=== PATIENT | female | born 1970 | race African-American/Black ===

== ENCOUNTER 2017-09-22 15:38 | Inpatient (IN) | payer OTHER ==
[2017-09-22 16:47] VITALS: BMI 32.5
--- NOTE | 2017-09-22 19:31 | HP ---
CIWA Score - CIWA Score Nausea/Vomitin-Mild Nausea/No Vomiting Muscle Tremors: 3 Anxiety: 3 Agitation: 3 Paroxysmal Sweats: 3 Orientation: 0-Oriented Tacttile Disturbances: 0-None Auditory Disturbances: 0-None Visual Disturbances: 2-Mild Sensitivity Headache: 0-None Present CIWA-Ar Total Score: 15 Admission ROS S - HPI Chief Complaint: alcohol withdrawal sx Allergies/Adverse Reactions: Allergies Allergy/AdvReac Type Severity Reaction Status Date / Time Penicillins Allergy Mild Itching Verified 01/20/12 16:54 tomato [Tomato] Allergy Mild Vomiting Verified 01/20/12 16:54 Unclassified Drug Allergy Verified 05/16/11 11:38 History of Present Illness: 46 yo female with hx of crack / cocaine, xanax , heroin ( paranasal), klonopin and alcohol dependence is here seeking detox. MMTP at [facility] on methadone 130 mg, last medicated today, dose pending verification. PMHX: Asthma , OA (b/l knees), schizophrenia. Denies suicidal / homicidal ideation or hx suicide attempts. Denies auditory or visual hallucination. Longest period of sobriety six years. Last detox three months ago at [facility]. Exam Limitations: No Limitations - Ebola screening Have you traveled outside of the country in the last 21 days: No (N) Have you had contact with anyone from an Ebola affected area: No Have you been sick,other than usual withdrawal symptoms: No Do you have a fever: No - Review of Systems Constitutional: Chills, Diaphoresis, Changes in sleep EENT: reports: No Symptoms Reported Respiratory: reports: No Symptoms reported Cardiac: reports: No Symptoms Reported GI: reports: Diarrhea (BM x4 today), Nausea, Poor Appetite, Poor Fluid Intake, Indigestion, Abdominal cramping : reports: No Symptoms Reported Musculoskeletal: reports: Back Pain (low back pain) Integumentary: reports: No Symptoms Reported Neuro: reports: No Symptoms reported Endocrine: reports: Increased Thirst Hematology: reports: Anemia (no meds) Psychiatric: reports: Mood/Affect Appropiate, Orientated x3, Anxious Other Systems: Reviewed and Negative Patient History - Patient Medical History Hx Anemia: Yes Hx Asthma: Yes (ON ALBUTEROL AND ADVAIR INHALERS) Hx Chronic Obstructive Pulmonary Disease (COPD): No Hx Cancer: No Hx Cardiac Disorders: No Hx Congestive Heart Failure: No Hx Hypertension: No Hx Hypercholesterolemia: No Hx Pacemaker: No HX Cerebrovascular Accident: No Hx Seizures: No Hx Dementia: No Hx Diabetes: No Hx Gastrointestinal Disorders: No Hx Liver Disease: No Hx Genitourinary Disorders: No Hx Sexually Transmitted Disorders: No Hx Renal Disease (ESRD): No Hx Thyroid Disease: No Hx Human Immunodeficiency Virus (HIV): No (NEGATIVE 2 MONTHS AGO) Hx Hepatitis C: No Hx Depression: Yes Hx Suicide Attempt: No Hx Bipolar Disorder: No Hx Schizophrenia: Yes - Patient Surgical History Past Surgical History: Yes Hx Neurologic Surgery: No Hx Cataract Extraction: No Hx Cardiac Surgery: No Hx Lung Surgery: No Hx Breast Surgery: No Hx Breast Biopsy: No Hx Abdominal Surgery: Yes (umbillical hernia repair in 1995) Hx Appendectomy: No Hx Cholecystectomy: Yes (1995) Hx Genitourinary Surgery: No Hx Section: Yes (5 c-sections) Hx Orthopedic Surgery: No Other Surgical History: UMBILLICAL HERNIA SX Anesthesia Reaction: No - PPD History Previous Implant?: No Documented Results: Negative w/proof Implanted On Prior [facility] Admission?: No Date: 05/16/11 Results: 0 MM PPD to be Administered?: Yes - Reproductive History Patient is a Female of Child Bearing Age (11 -55 yrs old): Yes Last Menstrual Period: 09/10/17 Patient : No - Smoking Cessation Smoking history: Current every day smoker Have you smoked in the past 12 months: Yes Aproximately how many cigarettes per day: 20 Hx Chewing Tobacco Use: No Initiated information on smoking cessation: Yes 'Breaking Loose' booklet given: 09/22/17 - Substance & Tx. History Hx Alcohol Use: Yes Hx Substance Use: Yes Substance Use Type: Alcohol, Cocaine, Heroin, Marijuana, Tranquilizers Hx Substance Use Treatment: Yes (ast detox three months ago at [facility]. ) - Substances Abused Alcohol Route: Oral Frequency: Daily Amount used: Liquor 3 pints Age of first use: 13 Date of Last Use: 09/22/17 Crack Route: Smoking Frequency: Daily Heroin Route: Inhalation Xanax Route: Inhalation Klonopin Route: Inhalation Family Disease History - Family Disease History Family History: Unable to Obtain Admission Physical Exam BHS - Vital Signs Vital Signs: Vital Signs - 24 hr 09/22/17 16:45 Temperature 97.0 F L Pulse Rate 56 L Respiratory 18 Rate Blood Pressure 122/63 - Physical General Appearance: Yes: Disheveled, Mild Distress, Obese, Sweating, Anxious HEENTM: Yes: EOMI, Hearing grossly Normal, Normal ENT Inspection, Normocephalic , Normal Voice, REGINA, Pharynx Normal, Tm's normal Respiratory: Yes: Chest Non-Tender, Lungs Clear, Normal Breath Sounds, No Respiratory Distress, No Accessory Muscle Use Neck: Yes: Within Normal Limits Breast: Yes: Breast Exam Deferred Cardiology: Yes: Regular Rhythm, Regular Rate, Murmur Genitourinary: Yes: Within Normal Limits Back: Yes: Normal Inspection Musculoskeletal: Yes: full range of Motion, Gait Steady, Pelvis Stable Extremities: Yes: Normal Capillary Refill, Normal Inspection, Normal Range of Motion, Non-Tender Neurological: Yes: tongue lining stitcher II-XII NML intact, Fully Oriented, Alert, Motor Strength 5/5, Depressed Affect Integumentary: Yes: Normal Color, Warm, Diaphoresis Lymphatic: Yes: Within Normal Limits - Diagnostic (1) Alcohol dependence with withdrawal Current Visit: Yes Status: Acute Qualifiers: Complication of substance-induced condition: uncomplicated Qualified Code(s ): F10.230 - Alcohol dependence with withdrawal, uncomplicated (2) Opioid dependence on agonist therapy Current Visit: Yes Status: Acute Comment: On methone 130 mg qd , dose pending verification (3) Asthma Current Visit: Yes Status: Chronic Qualifiers: Asthma severity: moderate Asthma persistence: unspecified Asthma complication type: unspecified Qualified Code(s): J45.909 - Unspecified asthma , uncomplicated (4) Sedative hypnotic or anxiolytic dependence Current Visit: Yes Status: Acute (5) Cocaine dependence Current Visit: Yes Status: Active Cleared for Admission [facility] - Detox or Rehab [facility] Level of Care: Medically Managed Detox Regimen/Protocol: Librium [facility] Breath Alcohol Content Breath Alcohol Content: 0 Urine Pregancy Test - Result Urine Test Results: Negative- NO Line Present Urine Drug Screen - Results Drug Screen Negative: No Urine Drug Screen Results: MADDI-Cocaine, OPI-Opiates, MTD-Methadone, OXY- Oxycodone
[2017-09-22] MEDS ORDERED: ALBUTEROL SO4 2.5/IPRATROPIUM 0.5 INH SOL 3 ML VIAL.NEB. NEB PRN (19:37)
[2017-09-22] MEDS ORDERED: ALBUTEROL SO4 8 GM HFA INHALER IH PRN (19:37)
[2017-09-22] MEDS ORDERED: P-EPHED 60MG/TRIPROLIDI 2.5MG TABLET PO PRN (20:19)
[2017-09-22] MEDS ORDERED: MAG HYDROX/AL HYDROX/SIMETH 30 ML UNIT-DOSE CUP PO PRN (20:19)
[2017-09-22] MEDS ORDERED: MAGNESIUM HYDROX 2400MG/30ML ORAL SUSPENSION 30 ML CUP PO PRN (20:19)
[2017-09-22] MEDS ORDERED: MAGNESIUM CITRATE 300 ML BOTTLE PO PRN (20:19)
[2017-09-22] MEDS ORDERED: hydrOXYzine PAMOATE 50 MG CAPSULE (FP) PO PRN (20:19)
[2017-09-22] MEDS ORDERED: ACETAMINOPHEN 325 MG TABLET (FP) PO PRN (20:19)
[2017-09-22] MEDS ORDERED: LOPERAMIDE HCL 2 MG CAPSULE PO PRN (20:19)
[2017-09-22] MEDS ORDERED: IBUPROFEN 400 MG TABLET (FP) PO PRN (20:19)
[2017-09-22] MEDS ORDERED: chlordiazePOXIDE HCL 25 MG CAPSULE PO PRN (20:19)
[2017-09-22] MEDS ORDERED: MENTHOL/PHENOL 1 EACH UD MM PRN (20:19)
[2017-09-22] MEDS ORDERED: NICOTINE POLACRILEX 2 MG GUM BUC PRN (20:19)
[2017-09-22] MEDS ORDERED: guaiFENesin/D-METHORPHAN HB 10 ML UNIT-DOSE CUPS PO PRN (20:19)
[2017-09-22] MEDS ORDERED: chlordiazePOXIDE HCL 25 MG CAPSULE PO ONE (20:30)
[2017-09-22] MEDS ORDERED: MELATONIN 5 MG TABLETS PO PRN (22:00)
[2017-09-22] MEDS: THIAMINE HCL 100 MG TABLET (FP) PO SCH (22:35)
[2017-09-22] MEDS: chlordiazePOXIDE HCL 25 MG CAPSULE PO SCH (22:35)
[2017-09-22] MEDS: BUDESONIDE/FORMETEROL FUMARATE 160/4.5 mcg INHALER IH SCH (22:35)
[2017-09-23 01:38] LABS: URINE APPEARANCE CLEAR; URINE BILIRUBIN NEGATIVE (<2.0 mg/dL); URINE COLOR YELLOW; URINE GLUCOSE (UA) NEGATIVE (NEGATIVE); URINE KETONE NEGATIVE (NEGATIVE); URINE LEUK ESTERASE NEGATIVE (NEGATIVE); URINE NITRITE NEGATIVE (NEGATIVE); URINE PROTEIN NEGATIVE (NEGATIVE); URINE UROBILINOGEN NEGATIVE mg/dL (0.2-1.0)
[2017-09-23] MEDS: chlordiazePOXIDE HCL 25 MG CAPSULE PO SCH ×4 (06:43→22:06)
[2017-09-23] MEDS: BUDESONIDE/FORMETEROL FUMARATE 160/4.5 mcg INHALER IH SCH ×2 (10:27→22:06)
[2017-09-23] MEDS: NICOTINE 14 MG/24 HOURS TOPICAL PATCH TD SCH (10:28)
[2017-09-23] MEDS: PRENATAL VITAMINS W/ FOLIC ACID TABLET (FP) PO SCH (10:28)
[2017-09-23] MEDS ORDERED: METHADONE HCL 10 MG TABLET PO ONE (10:43)
[2017-09-23] MEDS ORDERED: METHADONE HCL 10 MG TABLET PO SCH (10:45)
[2017-09-23] MEDS ORDERED: METHADONE 120 MG, METHADONE 20 MG PO ONE (11:00)
[2017-09-23 11:01] LABS: HEMATOCRIT 38.6 % (32.4-45.2); HEMOGLOBIN 12.4 GM/dL (10.7-15.3); MCH 28.6 pg (25.7-33.7); MCHC 32.1 g/dl (32.0-36.0); MEAN CELL VOLUME 88.9 fl (80-96); MEAN PLT VOLUME 9.8 fl (7.5-11.1); PLATELET COUNT 168 K/MM3 (134-434); RBC 4.34 M/mm3 (3.60-5.2); RDW 14.9 % (11.6-15.6); WHITE BLOOD COUNT 4.3 K/mm3 (4.0-10.0)
[2017-09-23] MEDS ORDERED: METHADONE HCL 10 MG TABLET ONE (11:07)
[2017-09-23] MEDS ORDERED: METHADONE HCL 40 MG DISPERSABLE TABLET ONE (11:07)
[2017-09-23 11:16] LABS: ALBUMIN 3.1 g/dl (3.4-5.0); ANION GAP 5 (8-16); BLOOD UREA NITROGEN 16 mg/dL (7-18); CHLORIDE 106 mmol/L (98-107); CO2 31 mmol/L (21-32); GLUCOSE,RANDOM 74 mg/dL (74-106); POTASSIUM 3.7 mmol/L (3.5-5.1); SODIUM 142 mmol/L (136-145)
[2017-09-23 11:20] LABS: ALK PHOS 77 U/L (45-117); BILIRUBIN,TOTAL 0.2 mg/dL (0.2-1.0); CREATININE 1.2 mg/dL (0.55-1.02); SGOT/AST 8 U/L (15-37); SGPT/ALT 17 U/L (12-78); TOT PROT 6.6 g/dl (6.4-8.2)
--- NOTE | 2017-09-23 16:29 | EKG ---
Test Reason : Blood Pressure : / mmHG Vent. Rate : 049 BPM Atrial Rate : 049 BPM P-R Int : 136 ms QRS Dur : 088 ms QT Int : 504 ms P-R-T Axes : 074 078 081 degrees QTc Int : 455 ms SINUS BRADYCARDIA OTHERWISE NORMAL ECG NO PREVIOUS ECGS AVAILABLE Confirmed by Gunnar Gonzalez MD ([id number]) on 09/23/2017 4:29:06 PM Referred By: Confirmed By:Gunnar Gonzalez MD
--- NOTE | 2017-09-23 16:32 | PN ---
[facility] CIWA - CIWA Score Nausea/Vomitin Muscle Tremors: 3 Anxiety: 3 Agitation: 3 Paroxysmal Sweats: 1-Minimal Palms Moist Orientation: 0-Oriented Tacttile Disturbances: 1-Very Mild Itch/Numbness Auditory Disturbances: 1-Very Mild Visual Disturbances: 0-None Headache: 2-Mild CIWA-Ar Total Score: 17 S Progress Note (SOAP) Subjective: alert,irritable,anxious,interrupted sleep,tremor,pain in the body and back Objective: 09/23/17 16:29 Vital Signs Temperature 97.5 F L 09/23/17 13:31 Pulse Rate 64 09/23/17 13:31 Respiratory Rate 18 09/23/17 13:31 Blood Pressure 132/73 09/23/17 13:31 O2 Sat by Pulse Oximetry (%) ekg sinus bradycardia 49/min qt/qtc 504/455 no chest pain,no sob,no dizziness Laboratory Last Values WBC 4.3 K/mm3 (4.0-10.0) 09/23/17 07:00 RBC 4.34 M/mm3 (3.60-5.2) 09/23/17 07:00 Hgb 12.4 GM/dL (10.7-15.3) 09/23/17 07:00 Hct 38.6 % (32.4-45.2) 09/23/17 07:00 MCV 88.9 fl (80-96) 09/23/17 07:00 MCH 28.6 pg (25.7-33.7) 09/23/17 07:00 MCHC 32.1 g/dl (32.0-36.0) 09/23/17 07:00 RDW 14.9 % (11.6-15.6) 09/23/17 07:00 Plt Count 168 K/MM3 (134-434) 09/23/17 07:00 MPV 9.8 fl (7.5-11.1) 09/23/17 07:00 Sodium 142 mmol/L (136-145) 09/23/17 07:00 Potassium 3.7 mmol/L (3.5-5.1) 09/23/17 07:00 Chloride 106 mmol/L (98-107) 09/23/17 07:00 Carbon Dioxide 31 mmol/L (21-32) 09/23/17 07:00 Anion Gap 5 (8-16) L 09/23/17 07:00 BUN 16 mg/dL (7-18) 09/23/17 07:00 Creatinine 1.2 mg/dL (0.55-1.02) H 09/23/17 07:00 Creat Clearance w eGFR 47.95 (>60) 09/23/17 07:00 Random Glucose 74 mg/dL (74-106) 09/23/17 07:00 Calcium 9.0 mg/dL (8.5-10.1) 09/23/17 07:00 Total Bilirubin 0.2 mg/dL (0.2-1.0) 09/23/17 07:00 AST 8 U/L (15-37) L 09/23/17 07:00 ALT 17 U/L (12-78) 09/23/17 07:00 Alkaline Phosphatase 77 U/L (45-117) 09/23/17 07:00 Total Protein 6.6 g/dl (6.4-8.2) 09/23/17 07:00 Albumin 3.1 g/dl (3.4-5.0) L 09/23/17 07:00 Urine Color Yellow 09/22/17 23:22 Urine Appearance Clear 09/22/17 23:22 Urine pH 5.0 (5.0-8.0) 09/22/17 23:22 Ur Specific [place] 1.023 (1.001-1.035) 09/22/17 23:22 Urine Protein Negative (NEGATIVE) 09/22/17 23:22 Urine Glucose (UA) Negative (NEGATIVE) 09/22/17 23:22 Urine Ketones Negative (NEGATIVE) 09/22/17 23:22 Urine Blood Negative (NEGATIVE) 09/22/17 23:22 Urine Nitrite Negative (NEGATIVE) 09/22/17 23:22 Urine Bilirubin Negative (<2.0 mg/dL) 09/22/17 23:22 Urine Urobilinogen Negative mg/dL (0.2-1.0) 09/22/17 23:22 Ur Leukocyte Esterase Negative (NEGATIVE) 09/22/17 23:22 RPR Titer Nonreactive (NONREACTIVE) 09/23/17 07:00 Assessment: 09/23/17 16:31 withdrawal symptom Plan: continue detox
--- NOTE | 2017-09-23 16:46 | PN ---
BHS Progress Note Note: rash both legs itching,contact dermatitis, 0.5% hydrocortisone cream bid
[2017-09-23] MEDS: THIAMINE HCL 100 MG TABLET (FP) PO SCH (22:06)
[2017-09-23] MEDS: HYDROCORTISONE 0.5% TOPICAL CREAM 30 GM TUBE TP SCH (22:07)
[2017-09-24] MEDS ORDERED: METHADONE HCL 10 MG TABLET PO SCH (06:00)
[2017-09-24] MEDS ORDERED: METHADONE HCL 10 MG TABLET ONE (06:25)
[2017-09-24] MEDS ORDERED: METHADONE HCL 40 MG DISPERSABLE TABLET ONE (06:25)
[2017-09-24] MEDS: chlordiazePOXIDE HCL 25 MG CAPSULE PO SCH ×3 (06:26→18:12)
[2017-09-24] MEDS: METHADONE 120 MG, METHADONE 30 MG PO SCH (06:27)
[2017-09-24] MEDS: HYDROCORTISONE 0.5% TOPICAL CREAM 30 GM TUBE TP SCH ×2 (11:02→22:41)
[2017-09-24] MEDS: BUDESONIDE/FORMETEROL FUMARATE 160/4.5 mcg INHALER IH SCH ×2 (11:02→22:41)
[2017-09-24] MEDS: NICOTINE 14 MG/24 HOURS TOPICAL PATCH TD SCH (11:03)
[2017-09-24] MEDS: PRENATAL VITAMINS W/ FOLIC ACID TABLET (FP) PO SCH (11:04)
--- NOTE | 2017-09-24 14:55 | PN ---
S CIWA - CIWA Score Nausea/Vomitin Muscle Tremors: 3 Anxiety: 2 Agitation: 2 Paroxysmal Sweats: 1-Minimal Palms Moist Orientation: 0-Oriented Tacttile Disturbances: 1-Very Mild Itch/Numbness Auditory Disturbances: 1-Very Mild Visual Disturbances: 0-None Headache: 2-Mild CIWA-Ar Total Score: 15 BHS Progress Note (SOAP) Subjective: alert,irritable,anxious,interrupted sleep,tremor Objective: 09/24/17 14:53 Vital Signs Temperature 97.5 F L 09/24/17 09:40 Pulse Rate 61 09/24/17 09:40 Respiratory Rate 18 09/24/17 09:40 Blood Pressure 119/71 09/24/17 09:40 O2 Sat by Pulse Oximetry (%) Assessment: 09/24/17 14:54 withdrawal symptom Plan: continue detox
--- NOTE | 2017-09-24 15:52 | CONSULT ---
[facility] Psychiatric Consult - Data Date of interview: 09/24/17 Admission source: [facility] Identifying data: Patient is a 46 year old single woman, mother of five, unemployed, domiciled, and supported by [facility]. This is patient's first admission to detox at [facility]. Pt. admitted to for alcohol, cocaine, and opiate dependence. Substance Abuse History: Smoking Cessation. Smoking history: Current every day smoker. Have you smoked in the past 12 months: Yes. Aproximately how many cigarettes per day: 20. Hx Chewing Tobacco Use: No. Initiated information on smoking cessation: Yes. 'Breaking Loose' booklet given: 09/22/17. - Substance & Tx. History. Hx Alcohol Use: Yes. Hx Substance Use: Yes. Substance Use Type : Alcohol, Cocaine, Heroin, Marijuana, Tranquilizers. Hx Substance Use Treatment: Yes (ast detox three months ago at [facility]. ). - Substances Abused. Alcohol. Route: Oral. Frequency: Daily. Amount used: Liquor 3 pints. Age of first use: 13. Date of Last Use: 09/22/17. Crack. Route: Smoking. Frequency: Daily. Heroin. Route: Inhalation. Xanax. Route: Inhalation. Klonopin. Route: Inhalation Medical History: Anemia, asthma, umbillical hernia repair in 1995 Psychiatric History: Patient reports multiple psychiatric hospitalizations ( [place] and [facility]). OPD is provided at the [facility] in [facility]. Patient's current medication regime as per pharmacy claims are : Haldol 10mg + Wellbutrin 100mg ER + Seroquel 25mg. Pt. states she also takes cogentin 1mg. Diagnosis of schizoaffective disorder. Patient is also on methadone maintenance of 150mg daily. Pt. denies h/o suicide attempt. Physical/Sexual Abuse/Trauma History: denies. Mental Status Exam - Mental Status Exam Alert and Oriented to: Time, Place, Person Cognitive Function: Good Patient Appearance: Well Groomed Mood: Euthymic Affect: Mood Congruent Patient Behavior: Sedated, Fatigued Speech Pattern: Slurred Voice Loudness: Moderately Soft/Quiet Thought Process: Goal Oriented Thought Disorder: Not Present Hallucinations: Denies Suicidal Ideation: Denies Homicidal Ideation: Denies Insight/Judgement: Poor Sleep: Fair Appetite: Fair Muscle strength/Tone: Normal Gait/Station: Normal Psychiatric Findings - Problem List ([place] 1, 2,3) (1) Schizoaffective disorder Current Visit: Yes Status: Chronic Comment: Self reports. (2) Cocaine dependence Current Visit: Yes Status: Active (3) Alcohol dependence with withdrawal Current Visit: Yes Status: Acute Qualifiers: Complication of substance-induced condition: uncomplicated Qualified Code(s ): F10.230 - Alcohol dependence with withdrawal, uncomplicated (4) Opioid dependence on agonist therapy Current Visit: Yes Status: Chronic Comment: On methone 130 mg qd , dose pending verification - Initial Treatment Plan Initial Treatment Plan: Psychoeducation provided. Detoxification in progress. Pt. requesting Haldol 5mg + cogentin 1mg. Will hold seroquel dose to risk of oversedation. Benefits and side effects discussed. Verbal consent given.
[2017-09-24] MEDS: BENZTROPINE MESYLATE 1 MG TABLET (FP) PO SCH (22:40)
[2017-09-24] MEDS: HALOPERIDOL 5 MG TABLET (FP) PO SCH (22:41)
[2017-09-24] MEDS: chlordiazePOXIDE 5 MG CAPSULE PO SCH (22:41)
[2017-09-24] MEDS: THIAMINE HCL 100 MG TABLET (FP) PO SCH (22:42)
[2017-09-25] MEDS ORDERED: METHADONE HCL 40 MG DISPERSABLE TABLET ONE (04:57)
[2017-09-25] MEDS ORDERED: METHADONE HCL 10 MG TABLET ONE (04:58)
[2017-09-25] MEDS: METHADONE 120 MG, METHADONE 30 MG PO SCH (06:01)
[2017-09-25] MEDS: chlordiazePOXIDE 5 MG CAPSULE PO SCH ×3 (06:04→17:08)
[2017-09-25] MEDS: PRENATAL VITAMINS W/ FOLIC ACID TABLET (FP) PO SCH (11:05)
[2017-09-25] MEDS: BUDESONIDE/FORMETEROL FUMARATE 160/4.5 mcg INHALER IH SCH ×2 (11:20→22:45)
[2017-09-25] MEDS: HYDROCORTISONE 0.5% TOPICAL CREAM 30 GM TUBE TP SCH ×2 (11:20→22:45)
[2017-09-25] MEDS: NICOTINE 14 MG/24 HOURS TOPICAL PATCH TD SCH (11:25)
--- NOTE | 2017-09-25 15:20 | PN ---
BHS Progress Note (SOAP) Subjective: pt without complaints today- leaving tomorrow- need to d/w counselor d/c plans Objective: 09/25/17 15:19 Vital Signs - 24 hr 09/24/17 09/24/17 09/25/17 19:02 22:39 00:30 Temperature 97.9 F 98.2 F Pulse Rate 67 68 Respiratory 18 16 16 Rate Blood Pressure 125/66 124/68 09/25/17 09/25/17 09/25/17 07:29 10:44 14:03 Temperature 97.3 F L 96.4 F L 96.4 F L Pulse Rate 50 L 64 70 Respiratory 18 16 19 Rate Blood Pressure 118/72 135/64 118/58 Laboratory Tests 09/22/17 09/23/17 09/23/17 23:22 07:00 07:00 WBC 4.3 RBC 4.34 Hgb 12.4 Hct 38.6 MCV 88.9 MCH 28.6 MCHC 32.1 RDW 14.9 Plt Count 168 MPV 9.8 Sodium 142 Potassium 3.7 Chloride 106 Carbon Dioxide 31 Anion Gap 5 L BUN 16 Creatinine 1.2 H Creat Clearance w eGFR 47.95 Random Glucose 74 Calcium 9.0 Total Bilirubin 0.2 AST 8 L ALT 17 Alkaline Phosphatase 77 Total Protein 6.6 Albumin 3.1 L Urine Color Yellow Urine Appearance Clear Urine pH 5.0 Ur Specific [place] 1.023 Urine Protein Negative Urine Glucose (UA) Negative Urine Ketones Negative Urine Blood Negative Urine Nitrite Negative Urine Bilirubin Negative Urine Urobilinogen Negative Ur Leukocyte Esterase Negative RPR Titer 09/23/17 07:00 WBC RBC Hgb Hct MCV MCH MCHC RDW Plt Count MPV Sodium Potassium Chloride Carbon Dioxide Anion Gap BUN Creatinine Creat Clearance w eGFR Random Glucose Calcium Total Bilirubin AST ALT Alkaline Phosphatase Total Protein Albumin Urine Color Urine Appearance Urine pH Ur Specific [place] Urine Protein Urine Glucose (UA) Urine Ketones Urine Blood Urine Nitrite Urine Bilirubin Urine Urobilinogen Ur Leukocyte Esterase RPR Titer Nonreactive nl VS decrased GFR Assessment: 09/25/17 15:19 46 yo female with hx of crack / cocaine, xanax , heroin ( paranasal), klonopin and alcohol dependence for detox Plan: continue detox, d/c tomorrow, to discuss options with counselor
--- NOTE | 2017-09-25 16:49 | EKG ---
Test Reason : Blood Pressure : / mmHG Vent. Rate : 068 BPM Atrial Rate : 068 BPM P-R Int : 136 ms QRS Dur : 092 ms QT Int : 436 ms P-R-T Axes : 060 064 075 degrees QTc Int : 463 ms NORMAL SINUS RHYTHM NORMAL ECG WHEN COMPARED WITH ECG OF 22-SEP-2017 19:53, NO SIGNIFICANT CHANGE WAS FOUND Confirmed by LELE ALFREDO MD ([id number]) on 09/25/2017 3:51:40 PM Referred By: Confirmed By:LELE ALFREDO MD
[2017-09-25] MEDS: HALOPERIDOL 5 MG TABLET (FP) PO SCH (22:44)
[2017-09-25] MEDS: BENZTROPINE MESYLATE 1 MG TABLET (FP) PO SCH (22:44)
[2017-09-25] MEDS: chlordiazePOXIDE HCL 10 MG CAPSULE PO SCH (22:45)
[2017-09-25] MEDS: THIAMINE HCL 100 MG TABLET (FP) PO SCH (22:45)
[2017-09-26] MEDS ORDERED: METHADONE HCL 40 MG DISPERSABLE TABLET ONE (05:24)
[2017-09-26] MEDS ORDERED: METHADONE HCL 10 MG TABLET ONE (05:24)
[2017-09-26] MEDS: METHADONE 120 MG, METHADONE 30 MG PO SCH (05:58)
[2017-09-26] MEDS: chlordiazePOXIDE HCL 10 MG CAPSULE PO SCH (06:30)
--- NOTE | 2017-09-26 10:05 | PN ---
BHS Progress Note (SOAP) Subjective: pt going home today- no complaints Objective: 09/26/17 10:03 Laboratory Tests 09/22/17 09/23/17 09/23/17 23:22 07:00 07:00 WBC 4.3 RBC 4.34 Hgb 12.4 Hct 38.6 MCV 88.9 MCH 28.6 MCHC 32.1 RDW 14.9 Plt Count 168 MPV 9.8 Sodium 142 Potassium 3.7 Chloride 106 Carbon Dioxide 31 Anion Gap 5 L BUN 16 Creatinine 1.2 H Creat Clearance w eGFR 47.95 Random Glucose 74 Calcium 9.0 Total Bilirubin 0.2 AST 8 L ALT 17 Alkaline Phosphatase 77 Total Protein 6.6 Albumin 3.1 L Urine Color Yellow Urine Appearance Clear Urine pH 5.0 Ur Specific [place] 1.023 Urine Protein Negative Urine Glucose (UA) Negative Urine Ketones Negative Urine Blood Negative Urine Nitrite Negative Urine Bilirubin Negative Urine Urobilinogen Negative Ur Leukocyte Esterase Negative RPR Titer 09/23/17 07:00 WBC RBC Hgb Hct MCV MCH MCHC RDW Plt Count MPV Sodium Potassium Chloride Carbon Dioxide Anion Gap BUN Creatinine Creat Clearance w eGFR Random Glucose Calcium Total Bilirubin AST ALT Alkaline Phosphatase Total Protein Albumin Urine Color Urine Appearance Urine pH Ur Specific [place] Urine Protein Urine Glucose (UA) Urine Ketones Urine Blood Urine Nitrite Urine Bilirubin Urine Urobilinogen Ur Leukocyte Esterase RPR Titer Nonreactive Vital Signs - 24 hr 09/25/17 09/25/17 09/25/17 10:44 14:03 17:53 Temperature 96.4 F L 96.4 F L 97.2 F L Pulse Rate 64 70 73 Respiratory 16 19 18 Rate Blood Pressure 135/64 118/58 99/58 09/25/17 09/26/17 09/26/17 22:51 03:30 06:37 Temperature 97.9 F 97.9 F Pulse Rate 63 65 Respiratory 18 16 18 Rate Blood Pressure 132/75 118/66 stable VS mild CRI Assessment: 09/26/17 10:03 46 yo female with hx of crack / cocaine, xanax , heroin ( paranasal), klonopin and alcohol dependence here for alcohol detox. MMTP at [facility] on methadone 130 mg Plan: to rehab on Friday- in 2 days.
--- NOTE | 2017-09-26 10:06 | DS ---
[facility] Detox Discharge Summary Admission Date: 09/22/17 Discharge Date: 09/26/17 - History Present History: Alcohol Dependence, Cocaine Dependence, MMTP - Physical Exam Results Vital Signs: Vital Signs Temperature 97.9 F 09/26/17 06:37 Pulse Rate 65 09/26/17 06:37 Respiratory Rate 18 09/26/17 06:37 Blood Pressure 118/66 09/26/17 06:37 O2 Sat by Pulse Oximetry (%) Pertinent Admission Physical Exam Findings: 46 yo female with hx of crack / cocaine, xanax , heroin ( paranasal), klonopin and alcohol dependence is here for alcohol detox. MMTP at [facility] on methadone 130 mg - Treatment Hospital Course: Detox Protocol Followed, Detoxed Safely, Responded well, Discharged Condition Good, Rehab Referral Accepted - Medication Discharge Medications: Ambulatory Orders Albuterol [Ventolin] 17 gm IH Q4H PRN 05/15/11 Benztropine Mesylate [Cogentin] 1 mg PO DAILY 01/20/12 Fluoxetine HCl [Prozac] 10 mg PO DAILY 01/20/12 Gabapentin [Neurontin] 300 mg PO HS 01/20/12 Haloperidol [Haldol] 10 mg PO DAILY 01/20/12 - Diagnosis (1) Cocaine dependence Current Visit: Yes Status: Active (2) Alcohol dependence with withdrawal Current Visit: Yes Status: Acute Qualifiers: Complication of substance-induced condition: uncomplicated Qualified Code(s ): F10.230 - Alcohol dependence with withdrawal, uncomplicated (3) Sedative hypnotic or anxiolytic dependence Current Visit: Yes Status: Acute
[2017-09-26 10:19] VITALS: BP 130/70; PULSE 66; TEMP 97.2
[2017-09-26] MEDS: PRENATAL VITAMINS W/ FOLIC ACID TABLET (FP) PO SCH (10:56)
[2017-09-26] MEDS: BUDESONIDE/FORMETEROL FUMARATE 160/4.5 mcg INHALER IH SCH (10:56)
[2017-09-26] MEDS: HYDROCORTISONE 0.5% TOPICAL CREAM 30 GM TUBE TP SCH (10:57)
== END 2017-09-26 10:58 | disposition home or self-care (01) | DRG 774 ==
LOC: YASAS 15:38 → Y6N 19:20
PROVIDERS: ADMIT Surgery; ATTEND Surgery
PROC: HZ2ZZZZ Detoxification Services for Substance Abuse Treatment (ICD-10-PCS; principal; 2017-09-22)
DX: F10.230 Alcohol dependence with withdrawal, uncomplicated (principal); F13.230 Sedative, hypnotic or anxiolytic dependence with withdrawal, uncomplicated; F14.20 Cocaine dependence, uncomplicated; F17.210 Nicotine dependence, cigarettes, uncomplicated; F25.9 Schizoaffective disorder, unspecified; J45.998 Other asthma; L25.9 Unspecified contact dermatitis, unspecified cause; R00.1 Bradycardia, unspecified; E66.9 Obesity, unspecified; Z68.32 Body mass index [BMI] 32.0-32.9, adult; Z88.0 Allergy status to penicillin
CPT/HCPCS: 36415; 80053; 81003; 85027; 86593; 93005; 93010

== ENCOUNTER 2021-02-28 14:20 | Inpatient (IN) | payer OTHER ==
[2021-02-28] MEDS ORDERED: MAG HYDROX/AL HYDROX/SIMETH 30 ML UNIT-DOSE CUP PO PRN (15:26)
[2021-02-28] MEDS ORDERED: NICOTINE 10 MG CARTRIDGE (INHALER) IH PRN (15:26)
[2021-02-28] MEDS ORDERED: ACETAMINOPHEN 325 MG TABLET (FP) PO PRN ×2 (15:26)
[2021-02-28] MEDS ORDERED: IBUPROFEN 400 MG TABLET (FP) PO PRN (15:26)
[2021-02-28] MEDS ORDERED: BISMUTH SUBSALICYLATE 524 MG/30 ML PO PRN (15:26)
[2021-02-28] MEDS ORDERED: MENTHOL/PHENOL 1 EACH UD MM PRN (15:26)
[2021-02-28] MEDS ORDERED: MAGNESIUM CITRATE 300 ML BOTTLE PO PRN (15:26)
[2021-02-28] MEDS ORDERED: ONDANSETRON *ODT* 4 MG TABLET SL PRN (15:26)
[2021-02-28] MEDS ORDERED: MAGNESIUM HYDROX 2400MG/30ML ORAL SUSPENSION 30 ML CUP PO PRN (15:26)
[2021-02-28 20:27] VITALS: BMI 38.8
[2021-02-28] MEDS: hydrOXYzine PAMOATE 25 MG CAPSULE (FP) PO SCH ×2 (22:55→23:01)
[2021-02-28] MEDS: THIAMINE HCL 100 MG TABLET (FP) PO SCH (23:01)
[2021-02-28] MEDS: MELATONIN 5 MG TABLETS PO SCH (23:02)
[2021-03-01] MEDS: hydrOXYzine PAMOATE 25 MG CAPSULE (FP) PO SCH ×6 (06:36→23:36)
[2021-03-01] MEDS ORDERED: diazePAM 5 MG TABLET PO PRN (09:47)
[2021-03-01] MEDS ORDERED: methaDONE HCL 10 MG TABLET ONE (09:57)
[2021-03-01] MEDS ORDERED: methaDONE HCL 40 MG DISPERSABLE TABLET ONE (09:57)
[2021-03-01] MEDS ORDERED: methaDONE HCL 10 MG TABLET PO ONE (10:00)
[2021-03-01] MEDS: METHOCARBAMOL 500 MG TABLET PO PRN ×2 (10:24→23:37)
[2021-03-01] MEDS: PRENATAL VITAMINS W/ FOLIC ACID TABLET (FP) PO SCH (10:24)
[2021-03-01] MEDS: diazePAM 5 MG TABLET PO SCH ×3 (11:09→23:38)
[2021-03-01] MEDS ORDERED: ALBUTEROL SO4 HFA INHALER IH PRN (11:23)
[2021-03-01 11:52] LABS: CALCIUM 9.2 mg/dL (8.5-10.1)
[2021-03-01 11:57] LABS: HEMATOCRIT 37.8 % (32.4-45.2); HEMOGLOBIN 12.4 GM/dL (10.7-15.3); MCH 28.6 pg (25.7-33.7); MCHC 32.9 g/dl (32.0-36.0); MEAN PLT VOLUME 9.1 fl (7.5-11.1); PLATELET COUNT 162 10^3/uL (134-434); RBC 4.34 M/mm3 (3.60-5.2); RDW 14.5 % (11.6-15.6)
[2021-03-01 11:58] LABS: BILIRUBIN,TOTAL 0.3 mg/dL (0.2-1); TOT PROT 6.5 g/dl (6.4-8.2)
[2021-03-01] MEDS: amLODIPine BESYLATE 10 MG TABLET (FP) PO SCH (16:36)
[2021-03-01] MEDS: HALOPERIDOL 5 MG TABLET PO SCH (23:36)
[2021-03-01] MEDS: BENZTROPINE MESYLATE 1 MG TABLET PO SCH (23:36)
[2021-03-01] MEDS: MELATONIN 5 MG TABLETS PO SCH (23:36)
[2021-03-01] MEDS: THIAMINE HCL 100 MG TABLET (FP) PO SCH (23:38)
[2021-03-02] MEDS ORDERED: methaDONE HCL 40 MG DISPERSABLE TABLET ONE (04:59)
[2021-03-02] MEDS ORDERED: methaDONE HCL 10 MG TABLET ONE (04:59)
[2021-03-02] MEDS ORDERED: methaDONE HCL 10 MG TABLET PO SCH (06:00)
[2021-03-02] MEDS: hydrOXYzine PAMOATE 25 MG CAPSULE (FP) PO SCH ×5 (06:06→22:31)
[2021-03-02] MEDS: diazePAM 5 MG TABLET PO SCH ×3 (06:06→22:31)
[2021-03-02] MEDS: METHOCARBAMOL 500 MG TABLET PO PRN (10:34)
[2021-03-02] MEDS: amLODIPine BESYLATE 10 MG TABLET (FP) PO SCH (10:34)
[2021-03-02] MEDS: PRENATAL VITAMINS W/ FOLIC ACID TABLET (FP) PO SCH (10:34)
[2021-03-02] MEDS: MELATONIN 5 MG TABLETS PO SCH (22:30)
[2021-03-02] MEDS: HALOPERIDOL 5 MG TABLET PO SCH (22:31)
[2021-03-02] MEDS: BENZTROPINE MESYLATE 1 MG TABLET PO SCH (22:31)
[2021-03-02] MEDS: THIAMINE HCL 100 MG TABLET (FP) PO SCH (22:31)
[2021-03-03] MEDS ORDERED: methaDONE HCL 10 MG TABLET ONE ×2 (05:50→06:50)
[2021-03-03] MEDS ORDERED: methaDONE HCL 40 MG DISPERSABLE TABLET ONE ×2 (05:50→06:51)
[2021-03-03] MEDS: diazePAM 5 MG TABLET PO SCH ×2 (06:56→17:46)
[2021-03-03] MEDS: hydrOXYzine PAMOATE 25 MG CAPSULE (FP) PO SCH ×2 (06:57→10:47)
[2021-03-03] MEDS: amLODIPine BESYLATE 10 MG TABLET (FP) PO SCH (10:45)
[2021-03-03] MEDS: METHOCARBAMOL 500 MG TABLET PO PRN (10:45)
[2021-03-03] MEDS: PRENATAL VITAMINS W/ FOLIC ACID TABLET (FP) PO SCH (10:45)
[2021-03-03] MEDS ORDERED: hydrOXYzine PAMOATE 25 MG CAPSULE (FP) PO PRN (13:51)
[2021-03-03] MEDS: THIAMINE HCL 100 MG TABLET (FP) PO SCH (22:23)
[2021-03-03] MEDS: MELATONIN 5 MG TABLETS PO SCH (22:23)
[2021-03-03] MEDS: HALOPERIDOL 5 MG TABLET PO SCH (22:23)
[2021-03-03] MEDS: BENZTROPINE MESYLATE 1 MG TABLET PO SCH (22:23)
[2021-03-04] MEDS ORDERED: methaDONE HCL 10 MG TABLET ONE (04:31)
[2021-03-04] MEDS ORDERED: methaDONE HCL 40 MG DISPERSABLE TABLET ONE (04:31)
[2021-03-04] MEDS ORDERED: diazePAM 5 MG TABLET PO ONE (05:00)
[2021-03-04] MEDS: PRENATAL VITAMINS W/ FOLIC ACID TABLET (FP) PO SCH (10:29)
[2021-03-04] MEDS: amLODIPine BESYLATE 10 MG TABLET (FP) PO SCH (10:29)
[2021-03-04] MEDS: MELATONIN 5 MG TABLETS PO SCH (22:20)
[2021-03-04] MEDS: HALOPERIDOL 5 MG TABLET PO SCH (22:20)
[2021-03-04] MEDS: THIAMINE HCL 100 MG TABLET (FP) PO SCH (22:20)
[2021-03-04] MEDS: BENZTROPINE MESYLATE 1 MG TABLET PO SCH (22:20)
[2021-03-05] MEDS ORDERED: methaDONE HCL 40 MG DISPERSABLE TABLET ONE (04:04)
[2021-03-05] MEDS ORDERED: methaDONE HCL 10 MG TABLET ONE (04:04)
[2021-03-05 09:48] VITALS: BP 123/63; PULSE 64; TEMP 97.8
[2021-03-05] MEDS: amLODIPine BESYLATE 10 MG TABLET (FP) PO SCH (09:55)
[2021-03-05] MEDS: PRENATAL VITAMINS W/ FOLIC ACID TABLET (FP) PO SCH (09:55)
== END 2021-03-05 11:59 | disposition home or self-care (01) | DRG 773 ==
LOC: YASAS 14:20 → Y6N 22:36
PROVIDERS: ADMIT Allergy & Immunology; ATTEND Allergy & Immunology
PROC: HZ2ZZZZ Detoxification Services for Substance Abuse Treatment (ICD-10-PCS; principal; 2021-02-28)
DX: F10.230 Alcohol dependence with withdrawal, uncomplicated (principal); F13.230 Sedative, hypnotic or anxiolytic dependence with withdrawal, uncomplicated; F14.20 Cocaine dependence, uncomplicated; F11.20 Opioid dependence, uncomplicated; F17.210 Nicotine dependence, cigarettes, uncomplicated; F25.9 Schizoaffective disorder, unspecified; F19.24 Other psychoactive substance dependence with psychoactive substance-induced mood disorder; J45.20 Mild intermittent asthma, uncomplicated; Z88.0 Allergy status to penicillin; Z91.018 Allergy to other foods
CPT/HCPCS: 36415; 80053; 85027; 86780; C9803; U0003; U0005

== ENCOUNTER 2021-03-27 17:31 | Inpatient (IN) | payer OTHER ==
[2021-03-27 19:05] VITALS: BMI 38.4
[2021-03-27] MEDS ORDERED: MAG HYDROX/AL HYDROX/SIMETH 30 ML UNIT-DOSE CUP PO PRN (22:24)
[2021-03-27] MEDS ORDERED: ACETAMINOPHEN 325 MG TABLET (FP) PO PRN ×2 (22:24)
[2021-03-27] MEDS ORDERED: METHOCARBAMOL 500 MG TABLET PO PRN (22:24)
[2021-03-27] MEDS ORDERED: BISMUTH SUBSALICYLATE 524 MG/30 ML PO PRN (22:24)
[2021-03-27] MEDS ORDERED: MENTHOL/PHENOL 1 EACH UD MM PRN (22:24)
[2021-03-27] MEDS ORDERED: IBUPROFEN 400 MG TABLET (FP) PO PRN (22:24)
[2021-03-27] MEDS ORDERED: MAGNESIUM CITRATE 300 ML BOTTLE PO PRN (22:24)
[2021-03-27] MEDS ORDERED: ONDANSETRON *ODT* 4 MG TABLET SL PRN (22:24)
[2021-03-27] MEDS ORDERED: hydrOXYzine PAMOATE 25 MG CAPSULE (FP) PO PRN (22:24)
[2021-03-27] MEDS ORDERED: MAGNESIUM HYDROX 2400MG/30ML ORAL SUSPENSION 30 ML CUP PO PRN (22:24)
[2021-03-28] MEDS ORDERED: diazePAM 5 MG TABLET PO PRN (00:06)
[2021-03-28] MEDS: diazePAM 5 MG TABLET PO SCH ×4 (04:07→22:25)
[2021-03-28] MEDS: NICOTINE 10 MG CARTRIDGE (INHALER) IH PRN ×2 (04:11→23:53)
[2021-03-28] MEDS ORDERED: methaDONE HCL 10 MG TABLET PO SCH (07:45)
[2021-03-28] MEDS ORDERED: methaDONE HCL 40 MG DISPERSABLE TABLET ONE (09:08)
[2021-03-28] MEDS ORDERED: methaDONE HCL 10 MG TABLET ONE (09:08)
[2021-03-28 10:19] LABS: HEMATOCRIT 38.7 % (32.4-45.2); HEMOGLOBIN 12.2 GM/dL (10.7-15.3); MCH 27.7 pg (25.7-33.7); MCHC 31.4 g/dl (32.0-36.0); MEAN PLT VOLUME 9.2 fl (7.5-11.1); PLATELET COUNT 155 10^3/uL (134-434); RDW 14.9 % (11.6-15.6); WHITE BLOOD COUNT 4.4 K/mm3 (4.0-10.0)
[2021-03-28] MEDS: PRENATAL VITAMINS W/ FOLIC ACID TABLET (FP) PO SCH (10:25)
[2021-03-28] MEDS: NICOTINE 21 MG/24 HOURS TOPICAL PATCH TD SCH (10:25)
[2021-03-28 10:35] LABS: BILIRUBIN,TOTAL 0.4 mg/dL (0.2-1); BLOOD UREA NITROGEN 14.7 mg/dL (7-18); CALCIUM 8.8 mg/dL (8.5-10.1); TOT PROT 6.6 g/dl (6.4-8.2)
[2021-03-28 11:14] LABS: HIV INTERPRETATION NEGATIVE (NEGATIVE)
[2021-03-28] MEDS ORDERED: FLU VACC QS2021-22(6MOS UP)/PF 60 MCG/0.5 ML SYRINGE IM ONE (12:00)
[2021-03-28] MEDS: HALOPERIDOL 5 MG TABLET PO SCH (22:24)
[2021-03-28] MEDS: THIAMINE HCL 100 MG TABLET (FP) PO SCH (22:24)
[2021-03-28] MEDS: MELATONIN 5 MG TABLETS PO SCH (22:24)
[2021-03-28] MEDS: BENZTROPINE MESYLATE 1 MG TABLET PO SCH (22:24)
[2021-03-28] MEDS: metroNIDAZOLE 0.75% VAGINAL GEL 70 GM TUBE VG SCH (23:01)
[2021-03-29] MEDS ORDERED: methaDONE HCL 10 MG TABLET ONE (04:34)
[2021-03-29] MEDS ORDERED: methaDONE HCL 40 MG DISPERSABLE TABLET ONE (04:35)
[2021-03-29] MEDS: diazePAM 5 MG TABLET PO SCH ×3 (06:18→22:05)
[2021-03-29] MEDS: PRENATAL VITAMINS W/ FOLIC ACID TABLET (FP) PO SCH (10:09)
[2021-03-29] MEDS: NICOTINE 21 MG/24 HOURS TOPICAL PATCH TD SCH (10:11)
[2021-03-29] MEDS: THIAMINE HCL 100 MG TABLET (FP) PO SCH (22:03)
[2021-03-29] MEDS: HALOPERIDOL 5 MG TABLET PO SCH (22:04)
[2021-03-29] MEDS: MELATONIN 5 MG TABLETS PO SCH (22:04)
[2021-03-29] MEDS: metroNIDAZOLE 0.75% VAGINAL GEL 70 GM TUBE VG SCH (22:04)
[2021-03-29] MEDS: BENZTROPINE MESYLATE 1 MG TABLET PO SCH (22:05)
[2021-03-29] MEDS: NICOTINE 10 MG CARTRIDGE (INHALER) IH PRN (22:06)
[2021-03-30] MEDS ORDERED: methaDONE HCL 10 MG TABLET ONE (04:17)
[2021-03-30] MEDS ORDERED: methaDONE HCL 40 MG DISPERSABLE TABLET ONE (04:18)
[2021-03-30 06:07] LABS: SARS-CoV-2 NAA Not Detected (Not Detected)
[2021-03-30] MEDS: diazePAM 5 MG TABLET PO SCH ×2 (06:09→17:27)
[2021-03-30] MEDS: PRENATAL VITAMINS W/ FOLIC ACID TABLET (FP) PO SCH (10:28)
[2021-03-30] MEDS: NICOTINE 21 MG/24 HOURS TOPICAL PATCH TD SCH (10:28)
[2021-03-30] MEDS: NICOTINE 10 MG CARTRIDGE (INHALER) IH PRN (14:51)
[2021-03-30] MEDS: THIAMINE HCL 100 MG TABLET (FP) PO SCH (22:19)
[2021-03-30] MEDS: HALOPERIDOL 5 MG TABLET PO SCH (22:19)
[2021-03-30] MEDS: BENZTROPINE MESYLATE 1 MG TABLET PO SCH (22:19)
[2021-03-30] MEDS: MELATONIN 5 MG TABLETS PO SCH (22:19)
[2021-03-30] MEDS: metroNIDAZOLE 0.75% VAGINAL GEL 70 GM TUBE VG SCH (22:21)
[2021-03-31] MEDS ORDERED: methaDONE HCL 40 MG DISPERSABLE TABLET ONE (04:49)
[2021-03-31] MEDS ORDERED: methaDONE HCL 10 MG TABLET ONE (04:49)
[2021-03-31] MEDS ORDERED: diazePAM 5 MG TABLET PO ONE (06:00)
[2021-03-31 09:53] VITALS: BP 126/75; PULSE 62; TEMP 97.3
[2021-03-31] MEDS: NICOTINE 21 MG/24 HOURS TOPICAL PATCH TD SCH (10:20)
[2021-03-31] MEDS: PRENATAL VITAMINS W/ FOLIC ACID TABLET (FP) PO SCH (10:20)
[2021-03-31 14:11] LABS: SARS-CoV-2 NAA Not Detected (Not Detected)
== END 2021-03-31 11:23 | disposition other institution (70) | DRG 773 ==
LOC: YASAS 17:31 → Y3N 23:28
PROVIDERS: ADMIT Allergy & Immunology; ATTEND Allergy & Immunology
PROC: HZ2ZZZZ Detoxification Services for Substance Abuse Treatment (ICD-10-PCS; principal; 2021-03-27)
DX: F10.230 Alcohol dependence with withdrawal, uncomplicated (principal); F11.20 Opioid dependence, uncomplicated; F14.20 Cocaine dependence, uncomplicated; F13.20 Sedative, hypnotic or anxiolytic dependence, uncomplicated; F17.210 Nicotine dependence, cigarettes, uncomplicated; F25.9 Schizoaffective disorder, unspecified; F19.24 Other psychoactive substance dependence with psychoactive substance-induced mood disorder; J45.20 Mild intermittent asthma, uncomplicated; N89.8 Other specified noninflammatory disorders of vagina; E66.9 Obesity, unspecified; Z68.38 Body mass index [BMI] 38.0-38.9, adult; Z88.0 Allergy status to penicillin; Z91.013 Allergy to seafood
CPT/HCPCS: 36415; 80053; 85027; 86780; 87389; 87491; 87591; 87661; C9803; U0003; U0005

== ENCOUNTER 2021-12-25 15:05 | Inpatient (IN) | payer OTHER ==
[2021-12-25 15:58] VITALS: BMI 31.8
[2021-12-25] MEDS ORDERED: ALBUTEROL SO4 HFA INHALER IH PRN (16:48)
[2021-12-25] MEDS ORDERED: ACETAMINOPHEN 325 MG TABLET (FP) PO PRN ×2 (17:02)
[2021-12-25] MEDS ORDERED: METHOCARBAMOL 500 MG TABLET PO PRN (17:02)
[2021-12-25] MEDS ORDERED: NALOXONE HCL (KLOXXADO) 8 MG SPRAY NS PRN (17:02)
[2021-12-25] MEDS ORDERED: NICOTINE POLACRILEX 2 MG GUM BUC PRN (17:02)
[2021-12-25] MEDS ORDERED: BISMUTH SUBSALICYLATE 524 MG/30 ML PO PRN (17:02)
[2021-12-25] MEDS ORDERED: P-EPHED 60MG/TRIPROLIDI 2.5MG TABLET PO PRN (17:02)
[2021-12-25] MEDS ORDERED: guaiFENesin 200 MG/10 ML 10 ML UNIT-DOSE CUPS PO PRN (17:02)
[2021-12-25] MEDS ORDERED: NALOXONE HCL 0.4 MG/ML VIAL IM PRN (17:02)
[2021-12-25] MEDS ORDERED: BENZOCAINE/MENTHOL (CHLORASEPTIC ) LOZENGE MM PRN (17:02)
[2021-12-25] MEDS ORDERED: ONDANSETRON *ODT* 4 MG TABLET SL PRN (17:02)
[2021-12-25] MEDS ORDERED: MAG HYDROX/AL HYDROX/SIMETH 30 ML UNIT-DOSE CUP PO PRN (17:02)
[2021-12-25] MEDS ORDERED: LOPERAMIDE HCL 2 MG CAPSULE PO PRN (17:02)
[2021-12-25] MEDS ORDERED: IBUPROFEN 400 MG TABLET (FP) PO PRN (17:02)
[2021-12-25] MEDS ORDERED: MAGNESIUM CITRATE 300 ML BOTTLE PO PRN (17:02)
[2021-12-25] MEDS ORDERED: MAGNESIUM HYDROX 2400MG/30ML ORAL SUSPENSION 30 ML CUP PO PRN (17:02)
[2021-12-25] MEDS ORDERED: IBUPROFEN 600 MG TABLET (FP) PO PRN (17:02)
[2021-12-25] MEDS ORDERED: DICYCLOMINE HCL 10 MG CAPSULE PO PRN (17:02)
[2021-12-25 18:31] VITALS: RESP 18
[2021-12-25] MEDS ORDERED: THIAMINE HCL 100 MG TABLET (FP) PO SCH (22:00)
[2021-12-26 09:05] VITALS: BP 133/66; PULSE 88; TEMP 98.4
[2021-12-26] MEDS ORDERED: methaDONE HCL 40 MG DISPERSABLE TABLET PO SCH (09:15)
[2021-12-26] MEDS ORDERED: PRENATAL VITAMINS W/ FOLIC ACID TABLET (FP) PO SCH (10:00)
[2021-12-26] MEDS ORDERED: NICOTINE 10 MG CARTRIDGE (INHALER) IH PRN (11:05)
[2021-12-26 15:34] LABS: HEMATOCRIT 37.2 % (32.4-45.2); HEMOGLOBIN 11.8 GM/dL (10.7-15.3); MCH 28.1 pg (25.7-33.7); MCHC 31.8 g/dl (32.0-36.0); MEAN CELL VOLUME 88.6 fl (80-96); MEAN PLT VOLUME 10.1 fl (7.5-11.1); PLATELET COUNT 181 10^3/uL (134-434); RDW 14.6 % (11.6-15.6); WHITE BLOOD COUNT 4.7 K/mm3 (4.0-10.0)
[2021-12-26 16:15] LABS: ALBUMIN 3.1 g/dl (3.4-5.0); CALCIUM 8.7 mg/dL (8.5-10.1)
[2021-12-26 16:19] LABS: CREATININE 1.3 mg/dL (0.55-1.3)
[2021-12-26 16:20] LABS: BILIRUBIN,TOTAL 0.2 mg/dL (0.2-1); TOT PROT 6.4 g/dl (6.4-8.2)
== END 2021-12-26 12:30 | disposition other institution (70) | DRG 773 ==
LOC: YASAS 15:05 → UNDOADMIN 17:57 → Y3N 17:57 → UNDODISIN 12-26 12:30
PROVIDERS: ADMIT Allergy & Immunology; ATTEND Surgery
PROC: HZ2ZZZZ Detoxification Services for Substance Abuse Treatment (ICD-10-PCS; principal; 2021-12-25)
DX: F11.23 Opioid dependence with withdrawal (principal); F10.20 Alcohol dependence, uncomplicated; F13.20 Sedative, hypnotic or anxiolytic dependence, uncomplicated; F15.20 Other stimulant dependence, uncomplicated; F17.210 Nicotine dependence, cigarettes, uncomplicated; F20.9 Schizophrenia, unspecified; F19.24 Other psychoactive substance dependence with psychoactive substance-induced mood disorder; J45.20 Mild intermittent asthma, uncomplicated; R94.31 Abnormal electrocardiogram [ECG] [EKG]; Z28.310 Unvaccinated for COVID-19; Z28.9 Immunization not carried out for unspecified reason; Z88.0 Allergy status to penicillin; Z91.013 Allergy to seafood
CPT/HCPCS: 36415; 80053; 81025; 85027; 86780; 87811; 93005; 93010; C9803-CS; Q0162; U0003; U0005

== ENCOUNTER 2022-09-03 11:49 | Inpatient (IN) | payer OTHER ==
[2022-09-03 12:35] VITALS: BMI 28.0
[2022-09-03] MEDS ORDERED: NALOXONE HCL 0.4 MG/ML VIAL IM PRN (13:23)
[2022-09-03] MEDS ORDERED: POLYETHYLENE GLYCOL (HEALTHYLAX) 3350 17 GM PACKET PO PRN (13:23)
[2022-09-03] MEDS ORDERED: BENZONATATE 200 MG CAPSULE PO PRN (13:23)
[2022-09-03] MEDS ORDERED: LOPERAMIDE HCL 2 MG CAPSULE PO PRN (13:23)
[2022-09-03] MEDS ORDERED: TUBERCULIN PPD 5 TU/0.1ML VIAL ID ONE (13:23)
[2022-09-03] MEDS ORDERED: MAGNESIUM HYDROX 2400MG/30ML ORAL SUSPENSION 30 ML CUP PO PRN (13:23)
[2022-09-03] MEDS ORDERED: IBUPROFEN 600 MG TABLET (FP) PO PRN (13:23)
[2022-09-03] MEDS ORDERED: BENZOCAINE/MENTHOL (CHLORASEPTIC ) LOZENGE MM PRN (13:23)
[2022-09-03] MEDS ORDERED: guaiFENesin 600 MG TABLET.ER (FP) PO PRN (13:23)
[2022-09-03] MEDS ORDERED: ACETAMINOPHEN 325 MG TABLET (FP) PO PRN (13:23)
[2022-09-03] MEDS ORDERED: MAG HYDROX/AL HYDROX/SIMETH 30 ML UNIT-DOSE CUP PO PRN (13:23)
[2022-09-03] MEDS ORDERED: AMMONIUM LACTATE 12% LOTION 225 GM BOTTLE TP PRN (13:23)
[2022-09-03] MEDS ORDERED: IBUPROFEN 400 MG TABLET (FP) PO PRN (13:23)
[2022-09-03] MEDS ORDERED: NALOXONE HCL (KLOXXADO) 8 MG SPRAY NS PRN (13:23)
[2022-09-03] MEDS ORDERED: ALBUTEROL SO4 HFA INHALER IH PRN (13:25)
[2022-09-03] MEDS: PRENATAL VITAMINS W/ FOLIC ACID TABLET (FP) PO SCH (14:59)
[2022-09-03 16:32] LABS: HEMATOCRIT 31.7 % (32.4-45.2); HEMOGLOBIN 10.4 GM/dL (10.7-15.3); MCHC 32.7 g/dl (32.0-36.0); MEAN CELL VOLUME 85.4 fl (80-96); PLATELET COUNT 151 10^3/uL (134-434); RBC 3.71 M/mm3 (3.60-5.2); RDW 15.8 % (11.6-15.6); WHITE BLOOD COUNT 4.1 K/mm3 (4.0-10.0)
[2022-09-03 16:34] LABS: POTASSIUM 3.9 mmol/L (3.5-5.1)
[2022-09-03 16:37] LABS: ALBUMIN 3.3 g/dl (3.4-5.0); CALCIUM 9.2 mg/dL (8.5-10.1)
[2022-09-03 16:41] LABS: BILIRUBIN,TOTAL 0.2 mg/dL (0.2-1); CREATININE 1.6 mg/dL (0.55-1.3); TOT PROT 7.1 g/dl (6.4-8.2)
[2022-09-03 17:00] LABS: SYPHILIS W/ RPR CONF NON-REACTIVE (NONREACTIVE)
[2022-09-03] MEDS: hydrOXYzine PAMOATE 25 MG CAPSULE (FP) PO PRN (21:45)
[2022-09-03] MEDS: THIAMINE HCL 100 MG TABLET (FP) PO SCH (21:45)
[2022-09-03] MEDS: MELATONIN 5 MG TABLETS PO SCH (21:46)
[2022-09-04] MEDS: methaDONE HCL 40 MG DISPERSABLE TABLET PO SCH (07:03)
[2022-09-04] MEDS: amLODIPine BESYLATE 10 MG TABLET (FP) PO SCH (10:24)
[2022-09-04] MEDS: PRENATAL VITAMINS W/ FOLIC ACID TABLET (FP) PO SCH (10:24)
[2022-09-04] MEDS: hydrOXYzine PAMOATE 25 MG CAPSULE (FP) PO PRN (10:25)
[2022-09-04] MEDS: MELATONIN 5 MG TABLETS PO SCH (21:15)
[2022-09-04] MEDS: HALOPERIDOL 5 MG TABLET PO SCH (21:15)
[2022-09-04] MEDS: THIAMINE HCL 100 MG TABLET (FP) PO SCH (21:15)
[2022-09-04] MEDS: BENZTROPINE MESYLATE 1 MG TABLET PO SCH (21:15)
[2022-09-05] MEDS: methaDONE HCL 40 MG DISPERSABLE TABLET PO SCH (07:00)
[2022-09-05] MEDS: PRENATAL VITAMINS W/ FOLIC ACID TABLET (FP) PO SCH (10:13)
[2022-09-05] MEDS: hydrOXYzine PAMOATE 25 MG CAPSULE (FP) PO PRN (10:13)
[2022-09-05] MEDS: amLODIPine BESYLATE 10 MG TABLET (FP) PO SCH (10:13)
[2022-09-05 13:39] LABS: PH,URINE 5.5 (5.0-8.0); URINE APPEARANCE CLEAR; URINE BILIRUBIN NEGATIVE (NEGATIVE); URINE COLOR YELLOW; URINE GLUCOSE (UA) NEGATIVE (NEGATIVE); URINE KETONE NEGATIVE (NEGATIVE); URINE LEUK ESTERASE NEGATIVE (NEGATIVE); URINE NITRITE NEGATIVE (NEGATIVE); URINE PROTEIN NEGATIVE (NEGATIVE); URINE UROBILINOGEN 0.2 mg/dL (0.2-1.0)
[2022-09-05] MEDS: THIAMINE HCL 100 MG TABLET (FP) PO SCH (21:32)
[2022-09-05] MEDS: BENZTROPINE MESYLATE 1 MG TABLET PO SCH (21:32)
[2022-09-05] MEDS: HALOPERIDOL 5 MG TABLET PO SCH (21:32)
[2022-09-05] MEDS: MELATONIN 5 MG TABLETS PO SCH (21:32)
[2022-09-06] MEDS: methaDONE HCL 40 MG DISPERSABLE TABLET PO SCH (06:17)
[2022-09-06] MEDS: PRENATAL VITAMINS W/ FOLIC ACID TABLET (FP) PO SCH (09:37)
[2022-09-06] MEDS: amLODIPine BESYLATE 10 MG TABLET (FP) PO SCH (09:37)
[2022-09-06] MEDS: COLLOIDAL OATMEAL 1 BAR EACH TP PRN (11:07)
[2022-09-06] MEDS: BENZTROPINE MESYLATE 1 MG TABLET PO SCH (21:17)
[2022-09-06] MEDS: MELATONIN 5 MG TABLETS PO SCH (21:17)
[2022-09-06] MEDS: HALOPERIDOL 5 MG TABLET PO SCH (21:17)
[2022-09-06] MEDS: THIAMINE HCL 100 MG TABLET (FP) PO SCH (21:17)
[2022-09-07] MEDS: methaDONE HCL 40 MG DISPERSABLE TABLET PO SCH (05:57)
[2022-09-07] MEDS: amLODIPine BESYLATE 10 MG TABLET (FP) PO SCH (10:12)
[2022-09-07] MEDS: PRENATAL VITAMINS W/ FOLIC ACID TABLET (FP) PO SCH (10:12)
[2022-09-07] MEDS: HALOPERIDOL 5 MG TABLET PO SCH (21:49)
[2022-09-07] MEDS: THIAMINE HCL 100 MG TABLET (FP) PO SCH (21:49)
[2022-09-07] MEDS: BENZTROPINE MESYLATE 1 MG TABLET PO SCH (21:49)
[2022-09-07] MEDS: MELATONIN 5 MG TABLETS PO SCH (21:49)
[2022-09-08] MEDS: methaDONE HCL 40 MG DISPERSABLE TABLET PO SCH (06:23)
[2022-09-08] MEDS: PRENATAL VITAMINS W/ FOLIC ACID TABLET (FP) PO SCH (10:05)
[2022-09-08] MEDS: amLODIPine BESYLATE 10 MG TABLET (FP) PO SCH (10:05)
[2022-09-08] MEDS: BENZTROPINE MESYLATE 1 MG TABLET PO SCH (21:23)
[2022-09-08] MEDS: HALOPERIDOL 5 MG TABLET PO SCH (21:23)
[2022-09-08] MEDS: MELATONIN 5 MG TABLETS PO SCH (21:23)
[2022-09-08] MEDS: THIAMINE HCL 100 MG TABLET (FP) PO SCH (21:23)
[2022-09-09] MEDS: hydrOXYzine PAMOATE 25 MG CAPSULE (FP) PO PRN (00:11)
[2022-09-09] MEDS: methaDONE HCL 40 MG DISPERSABLE TABLET PO SCH (06:30)
[2022-09-09] MEDS: PRENATAL VITAMINS W/ FOLIC ACID TABLET (FP) PO SCH (10:32)
[2022-09-09] MEDS: amLODIPine BESYLATE 10 MG TABLET (FP) PO SCH (10:32)
[2022-09-09] MEDS: BENZTROPINE MESYLATE 1 MG TABLET PO SCH (21:14)
[2022-09-09] MEDS: HALOPERIDOL 5 MG TABLET PO SCH (21:14)
[2022-09-09] MEDS: THIAMINE HCL 100 MG TABLET (FP) PO SCH (21:14)
[2022-09-09] MEDS: MELATONIN 5 MG TABLETS PO SCH (21:14)
[2022-09-10] MEDS: methaDONE HCL 40 MG DISPERSABLE TABLET PO SCH (06:15)
[2022-09-10] MEDS: amLODIPine BESYLATE 10 MG TABLET (FP) PO SCH (09:41)
[2022-09-10] MEDS: PRENATAL VITAMINS W/ FOLIC ACID TABLET (FP) PO SCH (09:41)
[2022-09-10] MEDS: COLLOIDAL OATMEAL 1 BAR EACH TP PRN (19:36)
[2022-09-10] MEDS: MELATONIN 5 MG TABLETS PO SCH (21:34)
[2022-09-10] MEDS: BENZTROPINE MESYLATE 1 MG TABLET PO SCH (21:35)
[2022-09-10] MEDS: THIAMINE HCL 100 MG TABLET (FP) PO SCH (21:35)
[2022-09-10] MEDS: HALOPERIDOL 5 MG TABLET PO SCH (21:35)
[2022-09-11] MEDS: methaDONE HCL 40 MG DISPERSABLE TABLET PO SCH (06:13)
[2022-09-11] MEDS: PRENATAL VITAMINS W/ FOLIC ACID TABLET (FP) PO SCH (09:34)
[2022-09-11] MEDS: amLODIPine BESYLATE 10 MG TABLET (FP) PO SCH (09:35)
[2022-09-11] MEDS ORDERED: NICOTINE 14 MG/24 HOURS TOPICAL PATCH TD PRN (12:37)
[2022-09-11] MEDS ORDERED: NICOTINE POLACRILEX 2 MG GUM BUC PRN (12:37)
[2022-09-11] MEDS: NICOTINE 10 MG CARTRIDGE (INHALER) IH SCH (13:50)
[2022-09-11] MEDS: BENZTROPINE MESYLATE 1 MG TABLET PO SCH (21:05)
[2022-09-11] MEDS: MELATONIN 5 MG TABLETS PO SCH (21:05)
[2022-09-11] MEDS: THIAMINE HCL 100 MG TABLET (FP) PO SCH (21:05)
[2022-09-11] MEDS: hydrOXYzine PAMOATE 25 MG CAPSULE (FP) PO PRN (21:05)
[2022-09-11] MEDS: HALOPERIDOL 5 MG TABLET PO SCH (21:05)
[2022-09-12] MEDS: methaDONE HCL 40 MG DISPERSABLE TABLET PO SCH (06:18)
[2022-09-12] MEDS: NICOTINE 10 MG CARTRIDGE (INHALER) IH SCH ×2 (09:45→11:55)
[2022-09-12] MEDS: PRENATAL VITAMINS W/ FOLIC ACID TABLET (FP) PO SCH (09:46)
[2022-09-12] MEDS: amLODIPine BESYLATE 10 MG TABLET (FP) PO SCH (09:46)
[2022-09-12] MEDS ORDERED: NICOTINE 10 MG CARTRIDGE (INHALER) IH PRN (11:50)
[2022-09-12] MEDS: LIDOCAINE 5% TOPICAL PATCH TP SCH ×2 (13:46→13:48)
[2022-09-12] MEDS: METHYL SALICYLATE/MENTHOL OINT 30 GM TUBE TP SCH (13:47)
[2022-09-12] MEDS: MELATONIN 5 MG TABLETS PO SCH (21:51)
[2022-09-12] MEDS: LIDOCAINE PATCH REMOVAL MC SCH (21:51)
[2022-09-12] MEDS: THIAMINE HCL 100 MG TABLET (FP) PO SCH (21:51)
[2022-09-12] MEDS: BENZTROPINE MESYLATE 1 MG TABLET PO SCH (21:52)
[2022-09-12] MEDS: HALOPERIDOL 5 MG TABLET PO SCH (21:52)
[2022-09-13] MEDS ORDERED: methaDONE HCL 40 MG DISPERSABLE TABLET PO SCH (06:00)
[2022-09-13] MEDS: PRENATAL VITAMINS W/ FOLIC ACID TABLET (FP) PO SCH (09:42)
[2022-09-13] MEDS: LIDOCAINE 5% TOPICAL PATCH TP SCH (09:44)
[2022-09-13] MEDS: METHYL SALICYLATE/MENTHOL OINT 30 GM TUBE TP SCH (09:51)
[2022-09-13] MEDS: NICOTINE 10 MG CARTRIDGE (INHALER) IH SCH (09:51)
[2022-09-13 10:44] LABS: BASO % 0.7 % (0-2.0); EOS % 1.7 % (0-4.5); HEMATOCRIT 31.7 % (32.4-45.2); HEMOGLOBIN 10.1 GM/dL (10.7-15.3); LYMPH % 48.8 % (8-40); MCH 28.1 pg (25.7-33.7); MCHC 31.8 g/dl (32.0-36.0); MEAN CELL VOLUME 88.2 fl (80-96); MEAN PLT VOLUME 9.9 fl (7.5-11.1); MONO % 11.5 % (3.8-10.2); NEUT % 37.3 % (42.8-82.8); PLATELET COUNT 167 10^3/uL (134-434); RBC 3.59 M/mm3 (3.60-5.2); WHITE BLOOD COUNT 5.1 K/mm3 (4.0-10.0)
[2022-09-13 11:12] LABS: POTASSIUM 4.5 mmol/L (3.5-5.1)
[2022-09-13 11:16] LABS: CALCIUM 9.1 mg/dL (8.5-10.1)
[2022-09-13 11:17] LABS: ALBUMIN 3.3 g/dl (3.4-5.0); BLOOD UREA NITROGEN 38.2 mg/dL (7-18)
[2022-09-13 11:18] LABS: CREATININE 1.1 mg/dL (0.55-1.3)
[2022-09-13 11:20] LABS: BILIRUBIN,TOTAL 0.2 mg/dL (0.2-1)
[2022-09-13 11:22] LABS: TOT PROT 7.2 g/dl (6.4-8.2)
[2022-09-13] MEDS: amLODIPine BESYLATE 10 MG TABLET (FP) PO SCH (11:49)
[2022-09-13] MEDS: BENZTROPINE MESYLATE 1 MG TABLET PO SCH (21:08)
[2022-09-13] MEDS: HALOPERIDOL 5 MG TABLET PO SCH (21:08)
[2022-09-13] MEDS: THIAMINE HCL 100 MG TABLET (FP) PO SCH (21:08)
[2022-09-13] MEDS: hydrOXYzine PAMOATE 25 MG CAPSULE (FP) PO PRN (21:09)
[2022-09-13] MEDS: MELATONIN 5 MG TABLETS PO SCH (21:10)
[2022-09-13] MEDS: LIDOCAINE PATCH REMOVAL MC SCH (21:41)
[2022-09-14 07:19] VITALS: RESP 18; TEMP 96.9
[2022-09-14] MEDS: PRENATAL VITAMINS W/ FOLIC ACID TABLET (FP) PO SCH (09:34)
[2022-09-14] MEDS: METHYL SALICYLATE/MENTHOL OINT 30 GM TUBE TP SCH (09:35)
[2022-09-14] MEDS: LIDOCAINE 5% TOPICAL PATCH TP SCH (09:35)
[2022-09-14] MEDS: NICOTINE 10 MG CARTRIDGE (INHALER) IH SCH (09:35)
[2022-09-14] MEDS: amLODIPine BESYLATE 10 MG TABLET (FP) PO SCH (09:39)
[2022-09-14 10:50] VITALS: BP 114/58; PULSE 55
== END 2022-09-14 16:52 | disposition home or self-care (01) | DRG 772 ==
LOC: YASAS 11:49 → Y5N 13:54
PROVIDERS: ADMIT Allergy & Immunology; ATTEND Psychiatry & Neurology Pain Medicine
PROC: HZ42ZZZ Group Counseling for Substance Abuse Treatment, Cognitive-Behavioral (ICD-10-PCS; principal; 2022-09-03)
DX: F10.20 Alcohol dependence, uncomplicated (principal); F11.20 Opioid dependence, uncomplicated; F14.20 Cocaine dependence, uncomplicated; F17.210 Nicotine dependence, cigarettes, uncomplicated; F25.9 Schizoaffective disorder, unspecified; I10 Essential (primary) hypertension; J45.20 Mild intermittent asthma, uncomplicated; N17.9 Acute kidney failure, unspecified; M06.862 Other specified rheumatoid arthritis, left knee; M06.861 Other specified rheumatoid arthritis, right knee; Z99.89 Dependence on other enabling machines and devices; Z28.310 Unvaccinated for COVID-19; Z28.9 Immunization not carried out for unspecified reason; Z86.19 Personal history of other infectious and parasitic diseases; Z88.0 Allergy status to penicillin; Z91.013 Allergy to seafood
CPT/HCPCS: 36415; 80053; 81003; 81025; 85025; 85027; 86780; 86803; 87635

== ENCOUNTER 2022-12-22 15:32 | Inpatient (IN) | payer OTHER ==
[2022-12-22 15:58] VITALS: RESP 18; BMI 28.3
[2022-12-22] MEDS ORDERED: ALBUTEROL SO4 HFA INHALER IH PRN (19:28)
[2022-12-22] MEDS ORDERED: ACETAMINOPHEN 325 MG TABLET (FP) PO PRN (19:30)
[2022-12-22] MEDS ORDERED: LOPERAMIDE HCL 2 MG CAPSULE PO PRN (19:30)
[2022-12-22] MEDS ORDERED: BENZOCAINE/MENTHOL (CHLORASEPTIC ) LOZENGE MM PRN (19:30)
[2022-12-22] MEDS ORDERED: MAGNESIUM HYDROX 2400MG/30ML ORAL SUSPENSION 30 ML CUP PO PRN (19:30)
[2022-12-22] MEDS ORDERED: NALOXONE HCL (KLOXXADO) 8 MG SPRAY NS PRN (19:30)
[2022-12-22] MEDS ORDERED: BENZONATATE 200 MG CAPSULE PO PRN (19:30)
[2022-12-22] MEDS ORDERED: MAG HYDROX/AL HYDROX/SIMETH 30 ML UNIT-DOSE CUP PO PRN (19:30)
[2022-12-22] MEDS ORDERED: IBUPROFEN 400 MG TABLET (FP) PO PRN (19:30)
[2022-12-22] MEDS ORDERED: NALOXONE HCL 0.4 MG/ML VIAL IM PRN (19:30)
[2022-12-22] MEDS ORDERED: POLYETHYLENE GLYCOL (HEALTHYLAX) 3350 17 GM PACKET PO PRN (19:30)
[2022-12-22] MEDS ORDERED: guaiFENesin 600 MG TABLET.ER (FP) PO PRN (19:30)
[2022-12-22] MEDS ORDERED: hydrOXYzine PAMOATE 25 MG CAPSULE (FP) PO PRN (19:30)
[2022-12-22] MEDS: MELATONIN 5 MG TABLETS PO SCH (21:40)
[2022-12-22] MEDS: THIAMINE HCL 100 MG TABLET (FP) PO SCH (21:40)
[2022-12-22] MEDS: COLLOIDAL OATMEAL 1 BAR EACH TP PRN (21:55)
[2022-12-23 00:57] LABS: PH,URINE 5.5 (5.0-8.0); URINE APPEARANCE CLEAR; URINE BILIRUBIN NEGATIVE (NEGATIVE); URINE COLOR YELLOW; URINE GLUCOSE (UA) NEGATIVE (NEGATIVE); URINE KETONE TRACE (NEGATIVE); URINE LEUK ESTERASE NEGATIVE (NEGATIVE); URINE NITRITE NEGATIVE (NEGATIVE); URINE PROTEIN TRACE (NEGATIVE); URINE UROBILINOGEN 0.2 mg/dL (0.2-1.0)
[2022-12-23 01:16] LABS: URINE AMPHETAMINES NEGATIVE (NEGATIVE); URINE BARBITURATES NEGATIVE (NEGATIVE)
[2022-12-23 01:17] LABS: PHENCYCLIDINE,URINE NEGATIVE (NEGATIVE); URINE BENZODIAZEPINES NEGATIVE (NEGATIVE)
[2022-12-23 01:35] LABS: COCAINE, UR POSITIVE (NEGATIVE); METHADONE, UR POSITIVE (NEGATIVE); OPIATES, URI POSITIVE (NEGATIVE)
[2022-12-23] MEDS ORDERED: methaDONE HCL 10 MG TABLET PO ONE (09:31)
[2022-12-23] MEDS: PRENATAL VITAMINS W/ FOLIC ACID TABLET (FP) PO SCH (09:57)
[2022-12-23] MEDS: amLODIPine BESYLATE 10 MG TABLET (FP) PO SCH (09:58)
[2022-12-23 11:35] LABS: CHLORIDE 108 mmol/L (98-107); HEMATOCRIT 32.1 % (32.4-45.2); HEMOGLOBIN 10.3 GM/dL (10.7-15.3); MCHC 32.1 g/dl (32.0-36.0); MEAN CELL VOLUME 87.2 fl (80-96); MEAN PLT VOLUME 9.6 fl (7.5-11.1); PLATELET COUNT 141 10^3/uL (134-434); POTASSIUM 3.8 mmol/L (3.5-5.1); RBC 3.69 M/mm3 (3.60-5.2); RDW 14.9 % (11.6-15.6); SODIUM 143 mmol/L (136-145); WHITE BLOOD COUNT 4.4 K/mm3 (4.0-10.0)
[2022-12-23 11:39] LABS: CALCIUM 8.4 mg/dL (8.5-10.1)
[2022-12-23 11:40] LABS: ALBUMIN 2.6 g/dl (3.4-5.0); ANION GAP 4 mmol/L (4-13); BLOOD UREA NITROGEN 27.5 mg/dL (7-18); CO2 32 mmol/L (21-32); GLUCOSE,RANDOM 86 mg/dL (74-106)
[2022-12-23 11:43] LABS: CREATININE 1.3 mg/dL (0.55-1.3); SGOT/AST 10 U/L (15-37); SGPT/ALT 12 U/L (13-61)
[2022-12-23 11:45] LABS: BILIRUBIN,TOTAL 0.2 mg/dL (0.2-1); TOT PROT 5.8 g/dl (6.4-8.2)
[2022-12-23 11:46] LABS: ALK PHOS 83 U/L (45-117)
[2022-12-23 12:07] LABS: SYPHILIS W/ RPR CONF NON-REACTIVE (NONREACTIVE)
[2022-12-23] MEDS ORDERED: SALICYLIC ACID (WART REMOVER) 9 ML LIQUID TP ONE (14:55)
[2022-12-23] MEDS ORDERED: SALICYLIC ACID (WART REMOVER) 9 ML LIQUID TP PRN (14:59)
[2022-12-23] MEDS: THIAMINE HCL 100 MG TABLET (FP) PO SCH (21:37)
[2022-12-23] MEDS: MELATONIN 5 MG TABLETS PO SCH (21:37)
[2022-12-24] MEDS ORDERED: methaDONE HCL 40 MG DISPERSABLE TABLET PO SCH (06:00)
[2022-12-24] MEDS ORDERED: methaDONE HCL 10 MG TABLET PO SCH (06:00)
[2022-12-24] MEDS: PRENATAL VITAMINS W/ FOLIC ACID TABLET (FP) PO SCH (10:15)
[2022-12-24] MEDS: amLODIPine BESYLATE 10 MG TABLET (FP) PO SCH (10:15)
[2022-12-24] MEDS: SALICYLIC ACID (WART REMOVER) 9 ML LIQUID TP PRN (15:21)
[2022-12-24] MEDS: HALOPERIDOL 5 MG TABLET PO SCH (21:13)
[2022-12-24] MEDS: BENZTROPINE MESYLATE 1 MG TABLET PO SCH (21:13)
[2022-12-24] MEDS: THIAMINE HCL 100 MG TABLET (FP) PO SCH (21:13)
[2022-12-24] MEDS: MELATONIN 5 MG TABLETS PO SCH (21:13)
[2022-12-25] MEDS ORDERED: methaDONE HCL 10 MG TABLET PO SCH (06:00)
[2022-12-25] MEDS: PRENATAL VITAMINS W/ FOLIC ACID TABLET (FP) PO SCH (09:20)
[2022-12-25] MEDS: amLODIPine BESYLATE 10 MG TABLET (FP) PO SCH (09:20)
[2022-12-25] MEDS: HALOPERIDOL 5 MG TABLET PO SCH (21:28)
[2022-12-25] MEDS: BENZTROPINE MESYLATE 1 MG TABLET PO SCH (21:28)
[2022-12-25] MEDS: MELATONIN 5 MG TABLETS PO SCH (21:29)
[2022-12-25] MEDS: THIAMINE HCL 100 MG TABLET (FP) PO SCH (21:29)
[2022-12-26] MEDS: PRENATAL VITAMINS W/ FOLIC ACID TABLET (FP) PO SCH (09:47)
[2022-12-26] MEDS: amLODIPine BESYLATE 10 MG TABLET (FP) PO SCH (09:48)
[2022-12-26] MEDS: MELATONIN 5 MG TABLETS PO SCH (21:25)
[2022-12-26] MEDS: BENZTROPINE MESYLATE 1 MG TABLET PO SCH (21:25)
[2022-12-26] MEDS: HALOPERIDOL 5 MG TABLET PO SCH (21:25)
[2022-12-26] MEDS: THIAMINE HCL 100 MG TABLET (FP) PO SCH (21:25)
[2022-12-27] MEDS ORDERED: methaDONE HCL 40 MG DISPERSABLE TABLET PO SCH ×2 (06:00)
[2022-12-27] MEDS: amLODIPine BESYLATE 10 MG TABLET (FP) PO SCH (09:56)
[2022-12-27] MEDS: PRENATAL VITAMINS W/ FOLIC ACID TABLET (FP) PO SCH (09:57)
[2022-12-27] MEDS: BENZTROPINE MESYLATE 1 MG TABLET PO SCH (21:26)
[2022-12-27] MEDS: THIAMINE HCL 100 MG TABLET (FP) PO SCH (21:26)
[2022-12-27] MEDS: MELATONIN 5 MG TABLETS PO SCH (21:26)
[2022-12-27] MEDS: HALOPERIDOL 5 MG TABLET PO SCH (21:26)
[2022-12-28] MEDS: amLODIPine BESYLATE 10 MG TABLET (FP) PO SCH (10:34)
[2022-12-28] MEDS: PRENATAL VITAMINS W/ FOLIC ACID TABLET (FP) PO SCH (10:35)
[2022-12-28] MEDS: BENZTROPINE MESYLATE 1 MG TABLET PO SCH (21:27)
[2022-12-28] MEDS: HALOPERIDOL 5 MG TABLET PO SCH (21:27)
[2022-12-28] MEDS: MELATONIN 5 MG TABLETS PO SCH (21:27)
[2022-12-28] MEDS: THIAMINE HCL 100 MG TABLET (FP) PO SCH (21:27)
[2022-12-29] MEDS: PRENATAL VITAMINS W/ FOLIC ACID TABLET (FP) PO SCH (09:59)
[2022-12-29] MEDS: amLODIPine BESYLATE 10 MG TABLET (FP) PO SCH (09:59)
[2022-12-29] MEDS: MELATONIN 5 MG TABLETS PO SCH (21:17)
[2022-12-29] MEDS: BENZTROPINE MESYLATE 1 MG TABLET PO SCH (21:18)
[2022-12-29] MEDS: THIAMINE HCL 100 MG TABLET (FP) PO SCH (21:18)
[2022-12-29] MEDS: HALOPERIDOL 5 MG TABLET PO SCH (21:18)
[2022-12-30] MEDS: PRENATAL VITAMINS W/ FOLIC ACID TABLET (FP) PO SCH (10:15)
[2022-12-30] MEDS: amLODIPine BESYLATE 10 MG TABLET (FP) PO SCH (10:15)
[2022-12-30] MEDS: HALOPERIDOL 5 MG TABLET PO SCH (21:29)
[2022-12-30] MEDS: BENZTROPINE MESYLATE 1 MG TABLET PO SCH (21:29)
[2022-12-30] MEDS: THIAMINE HCL 100 MG TABLET (FP) PO SCH (21:30)
[2022-12-30] MEDS: MELATONIN 5 MG TABLETS PO SCH (21:30)
[2022-12-31] MEDS ORDERED: methaDONE HCL 10 MG TABLET PO SCH (06:00)
[2022-12-31] MEDS: PRENATAL VITAMINS W/ FOLIC ACID TABLET (FP) PO SCH (09:41)
[2022-12-31] MEDS: amLODIPine BESYLATE 10 MG TABLET (FP) PO SCH (09:41)
[2022-12-31] MEDS ORDERED: METHYL SALICYLATE/MENTHOL OINT 30 GM TUBE TP PRN (14:07)
[2022-12-31] MEDS ORDERED: guaiFENesin 600 MG TABLET.ER (FP) PO PRN (14:16)
[2022-12-31] MEDS: MELATONIN 5 MG TABLETS PO SCH (22:07)
[2022-12-31] MEDS: HALOPERIDOL 5 MG TABLET PO SCH (22:07)
[2022-12-31] MEDS: THIAMINE HCL 100 MG TABLET (FP) PO SCH (22:07)
[2022-12-31] MEDS: BENZTROPINE MESYLATE 1 MG TABLET PO SCH (22:07)
[2023-01-01] MEDS: methaDONE HCL 40 MG DISPERSABLE TABLET PO SCH (07:13)
[2023-01-01] MEDS: amLODIPine BESYLATE 10 MG TABLET (FP) PO SCH (09:51)
[2023-01-01] MEDS: PRENATAL VITAMINS W/ FOLIC ACID TABLET (FP) PO SCH (09:51)
[2023-01-01] MEDS: COLLOIDAL OATMEAL 1 BAR EACH TP PRN (09:53)
[2023-01-01 11:55] LABS: HIV INTERPRETATION NEGATIVE (NEGATIVE)
[2023-01-01] MEDS: SALICYLIC ACID (WART REMOVER) 9 ML LIQUID TP PRN (18:05)
[2023-01-01] MEDS: HALOPERIDOL 5 MG TABLET PO SCH (21:36)
[2023-01-01] MEDS: BENZTROPINE MESYLATE 1 MG TABLET PO SCH (21:36)
[2023-01-01] MEDS: MELATONIN 5 MG TABLETS PO SCH (21:36)
[2023-01-01] MEDS: THIAMINE HCL 100 MG TABLET (FP) PO SCH (21:36)
[2023-01-02] MEDS: methaDONE HCL 40 MG DISPERSABLE TABLET PO SCH (06:16)
[2023-01-02] MEDS: amLODIPine BESYLATE 10 MG TABLET (FP) PO SCH (09:30)
[2023-01-02] MEDS: PRENATAL VITAMINS W/ FOLIC ACID TABLET (FP) PO SCH (09:30)
[2023-01-02] MEDS: SALICYLIC ACID (WART REMOVER) 9 ML LIQUID TP PRN (14:08)
[2023-01-02] MEDS: MELATONIN 5 MG TABLETS PO SCH (21:10)
[2023-01-02] MEDS: BENZTROPINE MESYLATE 1 MG TABLET PO SCH (21:10)
[2023-01-02] MEDS: THIAMINE HCL 100 MG TABLET (FP) PO SCH (21:10)
[2023-01-02] MEDS: HALOPERIDOL 5 MG TABLET PO SCH (21:10)
[2023-01-03] MEDS: methaDONE HCL 40 MG DISPERSABLE TABLET PO SCH (06:36)
[2023-01-03] MEDS: PRENATAL VITAMINS W/ FOLIC ACID TABLET (FP) PO SCH (10:12)
[2023-01-03] MEDS: amLODIPine BESYLATE 10 MG TABLET (FP) PO SCH (10:13)
[2023-01-03] MEDS: IBUPROFEN 600 MG TABLET (FP) PO PRN ×2 (10:14→18:29)
[2023-01-03] MEDS: NICOTINE POLACRILEX 4 MG GUM BUC PRN ×3 (15:58→23:51)
[2023-01-03] MEDS: BENZTROPINE MESYLATE 1 MG TABLET PO SCH (21:31)
[2023-01-03] MEDS: THIAMINE HCL 100 MG TABLET (FP) PO SCH (21:31)
[2023-01-03] MEDS: HALOPERIDOL 5 MG TABLET PO SCH (21:31)
[2023-01-03] MEDS: MELATONIN 5 MG TABLETS PO SCH (21:31)
[2023-01-04] MEDS ORDERED: methaDONE HCL 40 MG DISPERSABLE TABLET PO SCH (06:00)
[2023-01-04] MEDS: amLODIPine BESYLATE 10 MG TABLET (FP) PO SCH (10:05)
[2023-01-04] MEDS: PRENATAL VITAMINS W/ FOLIC ACID TABLET (FP) PO SCH (10:05)
[2023-01-04] MEDS: HALOPERIDOL 5 MG TABLET PO SCH (21:20)
[2023-01-04] MEDS: MELATONIN 5 MG TABLETS PO SCH (21:20)
[2023-01-04] MEDS: THIAMINE HCL 100 MG TABLET (FP) PO SCH (21:20)
[2023-01-04] MEDS: BENZTROPINE MESYLATE 1 MG TABLET PO SCH (21:20)
[2023-01-05 07:16] VITALS: TEMP 97.5
[2023-01-05] MEDS: PRENATAL VITAMINS W/ FOLIC ACID TABLET (FP) PO SCH (10:26)
[2023-01-05] MEDS: amLODIPine BESYLATE 10 MG TABLET (FP) PO SCH (10:26)
[2023-01-05 11:31] VITALS: BP 103/59; PULSE 63
== END 2023-01-05 16:35 | disposition home or self-care (01) | DRG 772 ==
LOC: SUATTDRO 15:32 → YASAS 15:32 → Y5N 19:38
PROVIDERS: ADMIT Allergy & Immunology; ATTEND Psychiatry & Neurology Pain Medicine
PROC: HZ42ZZZ Group Counseling for Substance Abuse Treatment, Cognitive-Behavioral (ICD-10-PCS; principal; 2022-12-22)
DX: F14.20 Cocaine dependence, uncomplicated (principal); F11.20 Opioid dependence, uncomplicated; F10.10 Alcohol abuse, uncomplicated; F17.210 Nicotine dependence, cigarettes, uncomplicated; J45.20 Mild intermittent asthma, uncomplicated; M06.9 Rheumatoid arthritis, unspecified; M17.11 Unilateral primary osteoarthritis, right knee; L84 Corns and callosities; Z99.89 Dependence on other enabling machines and devices; Z28.310 Unvaccinated for COVID-19; Z28.9 Immunization not carried out for unspecified reason; Z88.0 Allergy status to penicillin
CPT/HCPCS: 36415; 73560-TC-RT-FY; 80053; 80307; 81003; 82140; 84703; 85027; 86780; 86803; 87389; 87635

== ENCOUNTER 2023-02-26 14:45 | Inpatient (IN) | payer OTHER ==
[2023-02-26 17:16] VITALS: BMI 25.9
[2023-02-26] MEDS ORDERED: BENZONATATE 200 MG CAPSULE PO PRN (22:26)
[2023-02-26] MEDS ORDERED: NALOXONE HCL 0.4 MG/ML VIAL IM PRN (22:26)
[2023-02-26] MEDS ORDERED: IBUPROFEN 400 MG TABLET (FP) PO PRN (22:26)
[2023-02-26] MEDS ORDERED: ACETAMINOPHEN 325 MG TABLET (FP) PO PRN (22:26)
[2023-02-26] MEDS ORDERED: MAG HYDROX/AL HYDROX/SIMETH 30 ML UNIT-DOSE CUP PO PRN (22:26)
[2023-02-26] MEDS ORDERED: P-EPHED 60MG/TRIPROLIDI 2.5MG TABLET PO PRN (22:26)
[2023-02-26] MEDS ORDERED: LOPERAMIDE HCL 2 MG CAPSULE PO PRN (22:26)
[2023-02-26] MEDS ORDERED: NALOXONE HCL (KLOXXADO) 8 MG SPRAY NS PRN (22:26)
[2023-02-26] MEDS ORDERED: guaiFENesin 600 MG TABLET.ER (FP) PO PRN (22:26)
[2023-02-26] MEDS ORDERED: BENZOCAINE/MENTHOL (CHLORASEPTIC ) LOZENGE MM PRN (22:26)
[2023-02-26] MEDS ORDERED: POLYETHYLENE GLYCOL (HEALTHYLAX) 3350 17 GM PACKET PO PRN (22:26)
[2023-02-26] MEDS ORDERED: MAGNESIUM HYDROX 2400MG/30ML ORAL SUSPENSION 30 ML CUP PO PRN (22:26)
[2023-02-26] MEDS ORDERED: ALBUTEROL SO4 HFA INHALER IH PRN (22:28)
[2023-02-26] MEDS: MELATONIN 5 MG TABLETS PO SCH (23:23)
[2023-02-27] MEDS ORDERED: methaDONE HCL 10 MG TABLET PO SCH (09:15)
[2023-02-27] MEDS: PRENATAL VITAMINS W/ FOLIC ACID TABLET (FP) PO SCH (10:29)
[2023-02-27 11:43] LABS: HEMATOCRIT 35.6 % (32.4-45.2); HEMOGLOBIN 11.2 GM/dL (10.7-15.3); MCHC 31.5 g/dl (32.0-36.0); MEAN CELL VOLUME 88.8 fl (80-96); MEAN PLT VOLUME 9.2 fl (7.5-11.1); PLATELET COUNT 162 10^3/uL (134-434); RBC 4.01 M/mm3 (3.60-5.2); RDW 14.8 % (11.6-15.6); WHITE BLOOD COUNT 3.9 K/mm3 (4.0-10.0)
[2023-02-27 12:19] LABS: SYPHILIS W/ RPR CONF NON-REACTIVE (NONREACTIVE)
[2023-02-27 12:23] LABS: CHLORIDE 110 mmol/L (98-107); POTASSIUM 3.7 mmol/L (3.5-5.1); SODIUM 144 mmol/L (136-145)
[2023-02-27 12:30] LABS: GLUCOSE,RANDOM 68 mg/dL (74-106); SGPT/ALT 16 U/L (13-61)
[2023-02-27 12:31] LABS: ALBUMIN 2.7 g/dl (3.4-5.0); ANION GAP 6 mmol/L (4-13); BLOOD UREA NITROGEN 20.8 mg/dL (7-18); CALCIUM 8.7 mg/dL (8.5-10.1); CO2 28 mmol/L (21-32); SGOT/AST 12 U/L (15-37)
[2023-02-27 12:32] LABS: BILIRUBIN,TOTAL < 0.1 mg/dL (0.2-1); TOT PROT 6.5 g/dl (6.4-8.2)
[2023-02-27 12:33] LABS: ALK PHOS 85 U/L (45-117)
[2023-02-27 12:34] LABS: CREATININE 1.2 mg/dL (0.55-1.3)
[2023-02-27] MEDS: DOCUSATE SODIUM 100 MG CAPSULE (FP) PO PRN (21:28)
[2023-02-27] MEDS: THIAMINE HCL 100 MG TABLET (FP) PO SCH (21:29)
[2023-02-27] MEDS: MELATONIN 5 MG TABLETS PO SCH (21:29)
[2023-02-27] MEDS ORDERED: HALOPERIDOL 5 MG TABLET PO SCH (22:00)
[2023-02-27] MEDS ORDERED: BENZTROPINE MESYLATE 1 MG TABLET PO SCH (22:00)
[2023-02-28] MEDS: PRENATAL VITAMINS W/ FOLIC ACID TABLET (FP) PO SCH (09:45)
[2023-02-28 10:26] LABS: URINE APPEARANCE CLEAR; URINE BILIRUBIN NEGATIVE (NEGATIVE); URINE COLOR YELLOW; URINE GLUCOSE (UA) NEGATIVE (NEGATIVE); URINE KETONE NEGATIVE (NEGATIVE); URINE LEUK ESTERASE NEGATIVE (NEGATIVE); URINE NITRITE NEGATIVE (NEGATIVE); URINE PROTEIN NEGATIVE (NEGATIVE); URINE UROBILINOGEN 0.2 mg/dL (0.2-1.0)
[2023-02-28] MEDS: MELATONIN 5 MG TABLETS PO SCH (21:33)
[2023-02-28] MEDS: THIAMINE HCL 100 MG TABLET (FP) PO SCH (21:33)
[2023-03-01] MEDS: COLLOIDAL OATMEAL 1 BAR EACH TP PRN (05:29)
[2023-03-01] MEDS ORDERED: methaDONE HCL 40 MG DISPERSABLE TABLET PO SCH (06:00)
[2023-03-01] MEDS: PRENATAL VITAMINS W/ FOLIC ACID TABLET (FP) PO SCH (09:30)
[2023-03-01] MEDS: amLODIPine BESYLATE 10 MG TABLET (FP) PO SCH (09:30)
[2023-03-01] MEDS: IBUPROFEN 600 MG TABLET (FP) PO PRN (12:10)
[2023-03-01] MEDS: THIAMINE HCL 100 MG TABLET (FP) PO SCH (21:37)
[2023-03-01] MEDS: MELATONIN 5 MG TABLETS PO SCH (21:37)
[2023-03-02] MEDS: amLODIPine BESYLATE 10 MG TABLET (FP) PO SCH (09:28)
[2023-03-02] MEDS: PRENATAL VITAMINS W/ FOLIC ACID TABLET (FP) PO SCH (09:28)
[2023-03-02] MEDS: hydrOXYzine PAMOATE 25 MG CAPSULE (FP) PO PRN (15:55)
[2023-03-02] MEDS: THIAMINE HCL 100 MG TABLET (FP) PO SCH (21:27)
[2023-03-02] MEDS: MELATONIN 5 MG TABLETS PO SCH (21:27)
[2023-03-03] MEDS: LIDOCAINE 4% PATCH TP SCH (09:28)
[2023-03-03] MEDS: PRENATAL VITAMINS W/ FOLIC ACID TABLET (FP) PO SCH (09:28)
[2023-03-03] MEDS: NICOTINE POLACRILEX 2 MG LOZENGE BC PRN ×3 (09:33→21:35)
[2023-03-03] MEDS: amLODIPine BESYLATE 10 MG TABLET (FP) PO SCH (10:30)
[2023-03-03] MEDS: MELATONIN 5 MG TABLETS PO SCH (21:33)
[2023-03-03] MEDS: LIDOCAINE PATCH REMOVAL MC SCH (21:33)
[2023-03-03] MEDS: THIAMINE HCL 100 MG TABLET (FP) PO SCH (21:33)
[2023-03-04] MEDS: PRENATAL VITAMINS W/ FOLIC ACID TABLET (FP) PO SCH (09:35)
[2023-03-04] MEDS: LIDOCAINE 4% PATCH TP SCH (09:35)
[2023-03-04] MEDS: DOCUSATE SODIUM 100 MG CAPSULE (FP) PO PRN (09:37)
[2023-03-04] MEDS: amLODIPine BESYLATE 10 MG TABLET (FP) PO SCH (09:37)
[2023-03-04] MEDS: MELATONIN 5 MG TABLETS PO SCH (21:34)
[2023-03-04] MEDS: THIAMINE HCL 100 MG TABLET (FP) PO SCH (21:35)
[2023-03-04] MEDS: LIDOCAINE PATCH REMOVAL MC SCH (21:52)
[2023-03-05] MEDS: NICOTINE POLACRILEX 2 MG LOZENGE BC PRN ×2 (03:37→07:30)
[2023-03-05] MEDS: COLLOIDAL OATMEAL 1 BAR EACH TP PRN (07:07)
[2023-03-05] MEDS: IBUPROFEN 600 MG TABLET (FP) PO PRN ×2 (07:27→21:41)
[2023-03-05] MEDS: hydrOXYzine PAMOATE 25 MG CAPSULE (FP) PO PRN ×2 (07:28→21:39)
[2023-03-05] MEDS: amLODIPine BESYLATE 10 MG TABLET (FP) PO SCH (09:53)
[2023-03-05] MEDS: LIDOCAINE 4% PATCH TP SCH (09:53)
[2023-03-05] MEDS: PRENATAL VITAMINS W/ FOLIC ACID TABLET (FP) PO SCH (09:53)
[2023-03-05] MEDS: NICOTINE POLACRILEX 2 MG GUM BUC PRN ×2 (14:53→21:43)
[2023-03-05] MEDS: MELATONIN 5 MG TABLETS PO SCH (21:38)
[2023-03-05] MEDS: THIAMINE HCL 100 MG TABLET (FP) PO SCH (21:38)
[2023-03-05] MEDS: LIDOCAINE PATCH REMOVAL MC SCH (21:38)
[2023-03-06 07:05] VITALS: RESP 16; TEMP 97.3
[2023-03-06 09:28] VITALS: BP 124/65; PULSE 61
[2023-03-06] MEDS: PRENATAL VITAMINS W/ FOLIC ACID TABLET (FP) PO SCH (09:59)
[2023-03-06] MEDS: LIDOCAINE 4% PATCH TP SCH (10:00)
[2023-03-06] MEDS: amLODIPine BESYLATE 10 MG TABLET (FP) PO SCH (10:00)
[2023-03-06] MEDS: NICOTINE POLACRILEX 2 MG GUM BUC PRN (13:36)
== END 2023-03-06 14:45 | disposition home or self-care (01) | DRG 772 ==
LOC: YASAS 14:45 → Y5N 22:28
PROVIDERS: ADMIT Allergy & Immunology; ATTEND Psychiatry & Neurology Pain Medicine
PROC: HZ42ZZZ Group Counseling for Substance Abuse Treatment, Cognitive-Behavioral (ICD-10-PCS; principal; 2023-02-26)
DX: F11.20 Opioid dependence, uncomplicated (principal); F10.20 Alcohol dependence, uncomplicated; F14.20 Cocaine dependence, uncomplicated; F17.210 Nicotine dependence, cigarettes, uncomplicated; F25.9 Schizoaffective disorder, unspecified; F19.24 Other psychoactive substance dependence with psychoactive substance-induced mood disorder; I10 Essential (primary) hypertension; J45.909 Unspecified asthma, uncomplicated; M06.9 Rheumatoid arthritis, unspecified; Z99.89 Dependence on other enabling machines and devices; Z91.51 Personal history of suicidal behavior; Z28.310 Unvaccinated for COVID-19; Z28.9 Immunization not carried out for unspecified reason; Z88.0 Allergy status to penicillin
CPT/HCPCS: 0241U-QW; 36415; 80053; 81003; 81025; 85027; 86780; 86803; 87811

== ENCOUNTER 2023-05-02 14:08 | Inpatient (IN) | payer OTHER ==
[2023-05-02 17:01] VITALS: BMI 29.5
[2023-05-02] MEDS ORDERED: BENZONATATE 200 MG CAPSULE PO PRN (20:26)
[2023-05-02] MEDS ORDERED: BENZOCAINE/MENTHOL (CHLORASEPTIC ) LOZENGE MM PRN (20:26)
[2023-05-02] MEDS ORDERED: NALOXONE HCL 0.4 MG/ML VIAL IM PRN (20:26)
[2023-05-02] MEDS ORDERED: NALOXONE HCL (KLOXXADO) 8 MG SPRAY NS PRN (20:26)
[2023-05-02] MEDS ORDERED: IBUPROFEN 400 MG TABLET (FP) PO PRN (20:26)
[2023-05-02] MEDS ORDERED: guaiFENesin 600 MG TABLET.ER (FP) PO PRN (20:26)
[2023-05-02] MEDS ORDERED: MAGNESIUM HYDROX 2400MG/30ML ORAL SUSPENSION 30 ML CUP PO PRN (20:26)
[2023-05-02] MEDS ORDERED: POLYETHYLENE GLYCOL (HEALTHYLAX) 3350 17 GM PACKET PO PRN (20:26)
[2023-05-02] MEDS ORDERED: ALBUTEROL SO4 HFA INHALER IH PRN (23:35)
[2023-05-02] MEDS: THIAMINE HCL 100 MG TABLET (FP) PO SCH (23:51)
[2023-05-02] MEDS: MELATONIN 5 MG TABLETS PO SCH (23:51)
[2023-05-03] MEDS: NICOTINE 21 MG/24 HOURS TOPICAL PATCH TD SCH (09:19)
[2023-05-03] MEDS: amLODIPine BESYLATE 10 MG TABLET (FP) PO SCH (09:19)
[2023-05-03] MEDS: PRENATAL VITAMINS W/ FOLIC ACID TABLET (FP) PO SCH (09:19)
[2023-05-03] MEDS: methaDONE HCL 40 MG DISPERSABLE TABLET PO SCH (11:49)
[2023-05-03 12:50] LABS: HEMATOCRIT 31.7 % (32.4-45.2); HEMOGLOBIN 10.5 GM/dL (10.7-15.3); MCH 28.6 pg (25.7-33.7); MCHC 33.1 g/dl (32.0-36.0); MEAN CELL VOLUME 86.4 fl (80-96); MEAN PLT VOLUME 9.2 fl (7.5-11.1); PLATELET COUNT 140 10^3/uL (134-434); RBC 3.67 M/mm3 (3.60-5.2); RDW 15.3 % (11.6-15.6)
[2023-05-03 12:54] LABS: CHLORIDE 108 mmol/L (98-107); POTASSIUM 4.5 mmol/L (3.5-5.1); SODIUM 142 mmol/L (136-145)
[2023-05-03 13:04] LABS: ANION GAP 0 mmol/L (4-13); BLOOD UREA NITROGEN 23.4 mg/dL (7-18); CALCIUM 8.5 mg/dL (8.5-10.1); CO2 34 mmol/L (21-32); GLUCOSE,RANDOM 75 mg/dL (74-106)
[2023-05-03 13:05] LABS: ALBUMIN 2.7 g/dl (3.4-5.0)
[2023-05-03 13:07] LABS: SGPT/ALT 15 U/L (13-61)
[2023-05-03 13:08] LABS: SGOT/AST 14 U/L (15-37)
[2023-05-03 13:09] LABS: BILIRUBIN,TOTAL 0.3 mg/dL (0.2-1); TOT PROT 6.3 g/dl (6.4-8.2)
[2023-05-03 13:10] LABS: ALK PHOS 74 U/L (45-117)
[2023-05-03 13:15] LABS: SYPHILIS W/ RPR CONF NON-REACTIVE (NONREACTIVE)
[2023-05-03 13:46] LABS: HIV INTERPRETATION NEGATIVE (NEGATIVE)
[2023-05-03] MEDS: NICOTINE POLACRILEX 4 MG GUM BUC PRN (15:10)
[2023-05-03] MEDS ORDERED: HALOPERIDOL 5 MG TABLET PO SCH (22:00)
[2023-05-03] MEDS ORDERED: BENZTROPINE MESYLATE 1 MG TABLET PO SCH (22:00)
[2023-05-05] MEDS: IBUPROFEN 600 MG TABLET (FP) PO PRN (12:08)
[2023-05-05] MEDS: ACETAMINOPHEN 325 MG TABLET (FP) PO PRN (15:50)
[2023-05-05] MEDS: MAG HYDROX/AL HYDROX/SIMETH 30 ML UNIT-DOSE CUP PO PRN (23:14)
[2023-05-06] MEDS ORDERED: methaDONE HCL 40 MG DISPERSABLE TABLET PO SCH (12:52)
[2023-05-06] MEDS: LOPERAMIDE HCL 2 MG CAPSULE PO PRN (14:15)
[2023-05-06] MEDS: BENZOCAINE 28 GM HEMORRHOIDAL OINTMENT RC PRN (14:40)
[2023-05-06] MEDS: LIDOCAINE PATCH REMOVAL MC SCH (21:30)
[2023-05-06] MEDS: METHYL SALICYLATE/MENTHOL OINT 30 GM TUBE TP PRN (21:33)
[2023-05-07] MEDS: LIDOCAINE 5% TOPICAL PATCH TP PRN (10:37)
[2023-05-07 17:46] LABS: HIV INTERPRETATION NEGATIVE (NEGATIVE)
[2023-05-08] MEDS: amLODIPine BESYLATE 10 MG TABLET (FP) PO SCH (15:50)
[2023-05-09 07:53] VITALS: RESP 18; TEMP 97.7
[2023-05-09 09:11] VITALS: BP 117/69; PULSE 92
[2023-05-09] MEDS: amLODIPine BESYLATE 10 MG TABLET (FP) PO SCH (10:19)
== END 2023-05-09 14:30 | disposition home or self-care (01) | DRG 772 ==
LOC: YASAS 14:08 → Y3NR 23:25 → Y5N 05-03 13:48
PROVIDERS: ADMIT Allergy & Immunology; ATTEND Psychiatry & Neurology Pain Medicine
PROC: HZ42ZZZ Group Counseling for Substance Abuse Treatment, Cognitive-Behavioral (ICD-10-PCS; principal; 2023-05-02)
DX: F10.20 Alcohol dependence, uncomplicated (principal); F11.20 Opioid dependence, uncomplicated; F14.20 Cocaine dependence, uncomplicated; F17.210 Nicotine dependence, cigarettes, uncomplicated; F25.9 Schizoaffective disorder, unspecified; F19.24 Other psychoactive substance dependence with psychoactive substance-induced mood disorder; I10 Essential (primary) hypertension; J45.909 Unspecified asthma, uncomplicated; Z86.19 Personal history of other infectious and parasitic diseases; Z88.0 Allergy status to penicillin
CPT/HCPCS: 36415; 80053; 80305; 80307; 81025; 82140; 82652; 83735; 85027; 86780; 86803; 87389; 87635; 87811; 93005; 93010

== ENCOUNTER 2023-11-11 12:14 | Inpatient (IN) | payer OTHER ==
[2023-11-11 12:43] VITALS: BMI 26.2
[2023-11-11] MEDS ORDERED: BENZONATATE 200 MG CAPSULE PO PRN (14:36)
[2023-11-11] MEDS ORDERED: NALOXONE (NARCAN) HCL 4 MG/0.1 ML SPRAY NS PRN (14:36)
[2023-11-11] MEDS ORDERED: MAG HYDROX/AL HYDROX/SIMETH 30 ML UNIT-DOSE CUP PO PRN (14:36)
[2023-11-11] MEDS ORDERED: POLYETHYLENE GLYCOL (HEALTHYLAX) 3350 17 GM PACKET PO PRN (14:36)
[2023-11-11] MEDS ORDERED: ACETAMINOPHEN 325 MG TABLET (FP) PO PRN (14:36)
[2023-11-11] MEDS ORDERED: guaiFENesin 600 MG TABLET.ER (FP) PO PRN (14:36)
[2023-11-11] MEDS ORDERED: IBUPROFEN 600 MG TABLET (FP) PO PRN (14:36)
[2023-11-11] MEDS ORDERED: MAGNESIUM HYDROX 2400MG/30ML ORAL SUSPENSION 30 ML CUP PO PRN (14:36)
[2023-11-11] MEDS ORDERED: hydrOXYzine PAMOATE 25 MG CAPSULE (FP) PO PRN (14:36)
[2023-11-11] MEDS ORDERED: LOPERAMIDE HCL 2 MG CAPSULE PO PRN (14:36)
[2023-11-11] MEDS ORDERED: BENZOCAINE/MENTHOL (CHLORASEPTIC ) LOZENGE MM PRN (14:36)
[2023-11-11] MEDS ORDERED: IBUPROFEN 400 MG TABLET (FP) PO PRN (14:36)
[2023-11-11] MEDS ORDERED: NALOXONE HCL 0.4 MG/ML VIAL IM PRN (14:36)
[2023-11-11] MEDS ORDERED: ALBUTEROL SO4 HFA INHALER IH PRN (14:40)
[2023-11-11] MEDS: amLODIPine BESYLATE 10 MG TABLET (FP) PO SCH (19:02)
[2023-11-11] MEDS: MELATONIN 5 MG TABLETS PO SCH (22:19)
[2023-11-11] MEDS: THIAMINE 100 MG TABLET PO SCH (22:19)
[2023-11-11] MEDS: GABAPENTIN 300 MG CAPSULE PO SCH (22:19)
[2023-11-12 09:22] VITALS: TEMP 97.8
[2023-11-12] MEDS: methaDONE HCL 10 MG TABLET PO SCH (09:30)
[2023-11-12] MEDS ORDERED: methaDONE HCL 40 MG DISPERSABLE TABLET PO SCH (10:02)
[2023-11-12] MEDS: PRENATAL VITAMINS W/ FOLIC ACID TABLET (FP) PO SCH (10:30)
[2023-11-12] MEDS: methaDONE HCL 40 MG DISPERSABLE TABLET PO SCH (10:53)
[2023-11-12 13:32] VITALS: BP 119/60; PULSE 62; RESP 16
[2023-11-12 14:44] LABS: HEMATOCRIT 33.2 % (32.4-45.2); HEMOGLOBIN 10.6 GM/dL (10.7-15.3); MCH 28.1 pg (25.7-33.7); MEAN CELL VOLUME 87.8 fl (80-96); MEAN PLT VOLUME 11.6 fl (7.5-11.1); PLATELET COUNT 162 10^3/uL (134-434); RBC 3.78 M/mm3 (3.60-5.2); RDW 15.1 % (11.6-15.6); WHITE BLOOD COUNT 3.2 K/mm3 (4.0-10.0)
[2023-11-12 14:47] LABS: POTASSIUM 4.1 mmol/L (3.5-5.1)
[2023-11-12 15:09] LABS: SYPHILIS W/ RPR CONF NON-REACTIVE (NONREACTIVE)
[2023-11-12 15:10] LABS: ALBUMIN 3.2 g/dl (3.4-5.0); BLOOD UREA NITROGEN 23.9 mg/dL (7-18); CALCIUM 9.1 mg/dL (8.5-10.1)
[2023-11-12 15:14] LABS: CREATININE 1.2 mg/dL (0.55-1.3)
[2023-11-12 15:15] LABS: BILIRUBIN,TOTAL 0.3 mg/dL (0.2-1); TOT PROT 6.6 g/dl (6.4-8.2)
== END 2023-11-12 21:40 | disposition other institution (70) | DRG 773 ==
LOC: YASAS 12:14 → Y3N 17:37
PROVIDERS: ADMIT Allergy & Immunology; ATTEND Surgery
PROC: HZ2ZZZZ Detoxification Services for Substance Abuse Treatment (ICD-10-PCS; principal; 2023-11-11)
DX: F11.23 Opioid dependence with withdrawal (principal); F13.20 Sedative, hypnotic or anxiolytic dependence, uncomplicated; F14.20 Cocaine dependence, uncomplicated; F17.210 Nicotine dependence, cigarettes, uncomplicated; F25.9 Schizoaffective disorder, unspecified; I10 Essential (primary) hypertension
CPT/HCPCS: 36415; 80053; 80305; 80307; 85027; 86780; 86803; 93005; 93010